=== PATIENT | female | born 1960 | race Caucasian/White ===

== ENCOUNTER 2023-07-04 09:39 | Emergency (ER) | payer MEDICARE, BC, SELFPAY ==
[2023-07-04 09:53] VITALS: BP 142/94; PULSE 102; RESP 102; TEMP 36.1; O2SAT 96; BMI 35.4
--- NOTE | 2023-07-04 10:13 | ED.GENADULT ---
HPI - General Adult General Time Seen by Provider: 10:13 Date Seen: 07/04/23 Chief complaint: Cough Stated complaint: pneumonia, trouble breathing Time Seen by Provider: 07/04/23 09:57 Source: patient Mode of arrival: ambulatory Limitations: no limitations History of Present Illness HPI narrative: Patient is a 63 white female who has got significant mental health history who was diagnosed with pneumonia a couple days ago with a CT scan unenhanced that showed ground-glass interstitial changes consistent with pneumonitis/pneumonia. She appropriately was started on an injection which sounds like a steroid, as well as cefuroxime and Zithromax which she is completing. She still has a cough she is coughing up a little bit of material, non hemoptysis. No leg swelling or edema no history of bleeding or clotting problems. They attempted to do a CT with IV contrast but had difficulty with IV starts. The patient was asked to come to the ED if she is not better. She is actually breathing okay, but having trouble sleeping at night with a cough. No leg swelling, no edema, no trauma. No history of blood clots as mention. Related Data Home Medications Medication Instructions Recorded Confirmed aspirin 81 mg tablet,delayed 81 mg PO DAILY 07/04/23 07/04/23 release azithromycin 250 mg tablet mg PO 07/04/23 cefuroxime axetil 500 mg tablet 500 mg PO BID 07/04/23 07/04/23 divalproex 500 mg tablet,extended 500 mg PO DAILY 07/04/23 07/04/23 release 24 hr lithium carbonate 300 mg tablet mg PO DAILY 07/04/23 Allergies Allergy/AdvReac Type Severity Reaction Status Date / Time acetaminophen Allergy Verified 07/04/23 10:03 adhesive tape Allergy Verified 07/04/23 10:03 amoxicillin Allergy Verified 07/04/23 10:03 codeine Allergy Verified 07/04/23 10:03 fentanyl Allergy Verified 07/04/23 10:03 hydrocodone Allergy Verified 07/04/23 10:03 ibuprofen Allergy Verified 07/04/23 10:03 lamotrigine Allergy Verified 07/04/23 10:03 mirtazapine Allergy Verified 07/04/23 10:03 nickel Allergy Verified 07/04/23 10:03 olanzapine Allergy Verified 07/04/23 10:03 oxycodone Allergy Verified 07/04/23 10:03 propoxyphene Allergy Verified 07/04/23 10:03 risperidone Allergy Verified 07/04/23 10:03 Sulfa (Sulfonamide Allergy Verified 07/04/23 10:03 Antibiotics) Review of Systems Status of ROS: Reports: 6 or more systems reviewed and unremarkable except as noted in History and below Exam Narrative: Exam Narrative: Objective: Vital signs are unremarkable she is afebrile, O2 sat 96% on room air Alert orient x3, noncyanotic, occasional coarse cough noted. Chest shows a basilar wheeze that cleared with deep breathing on the left, heart rhythm regular heart murmur Abdomen benign soft Extremities are no edema neurologic nonfocal, negative Homans sign lower extremities Good peripheral perfusion skin warm and dry. Const: Vital Signs, click to edit/add: Vital Signs - 24 hr 07/04/23 09:53 Temperature 97.0 F L Pulse Rate [Right Pulse Oximeter] 102 H Respiratory Rate 102 H Blood Pressure [Ri ght Upper Arm] 142/94 H Pulse Oximetry 96 Oxygen Delivery Me thod Room Air Course Vital Signs Vital signs: Initial Vital Signs Temperature 97.0 F L 07/04/23 09:53 Temperature Source Temporal Artery Scan 07/04/23 09:53 Pulse Rate 102 H 07/04/23 09:53 Respiratory Rate 102 H 07/04/23 09:53 Blood Pressure 142/94 H 07/04/23 09:53 Blood Pressure Mean 110 H 07/04/23 09:53 Blood Pressure Position Sitting 07/04/23 09:53 Pulse Oximetry 96 07/04/23 09:53 Oxygen Delivery Method Room Air 07/04/23 09:53 Vital Signs Temperature 97.0 F L 07/04/23 09:53 Pulse Rate 102 H 07/04/23 09:53 Respiratory Rate 102 H 07/04/23 09:53 Blood Pressure 142/94 H 07/04/23 09:53 Pulse Oximetry 96 07/04/23 09:53 Oxygen Delivery Method Room Air 07/04/23 09:53 Temperature 97.0 F L 07/04/23 09:53 Pulse Rate 102 H 07/04/23 09:53 Respiratory Rate 102 H 07/04/23 09:53 Blood Pressure 142/94 H 07/04/23 09:53 Pulse Oximetry 96 07/04/23 09:53 Oxygen Delivery Method Room Air 07/04/23 09:53 Medical Decision Making MDM Narrative Medical decision making narrative: 63-year-old female with history of atypical type pneumonia pneumonitis/pneumonia noted on CT scanning. At this point with her cough, her examination, and her reassuring history of no leg swelling, or clots. I think we are safe to not pursue further CT scanning as the risk would be low for PE. She does have an explanation for her cough with the ground-glass atypical appearance on her CT scan. At this point this certainly could be viral but I would recommend she finish her antibiotics, she did get a steroid injection it appears by her history. Would recommend observation fluids light activity and then recheck with primary care in the next 2-4 days not improving return to ED sooner problems concerns worsening she was comfortable this with shared decision making we elected not to pursue further CT scanning. Discharge Plan Discharge Clinical Impression: Pneumonia Patient Disposition: Home, Self-Care Condition: Stable Additional Instructions: Finish your antibiotic medicines, steamy shower couple times a day, fluids, Tylenol as needed, recheck with regular doctor in the next few days not improving changes concerns worsening return to ED. Activity Level: Light activity Discharge Diet: Diabetic Prescriptions: No Action azithromycin 250 mg tablet PO aspirin 81 mg tablet,delayed release (DR/EC) 81 mg PO DAILY divalproex 500 mg tablet extended release 24 hr 500 mg PO DAILY cefuroxime axetil 500 mg tablet 500 mg PO BID lithium carbonate 300 mg tablet PO DAILY Follow Up/Referrals: Lana Moore MD [Primary Care Provider] - Stand Alone Forms: [employer] Info Instructions
== END 2023-07-04 10:44 | disposition home or self-care (01) ==
LOC: ED 10:42
PROVIDERS: Emergency Provider Family Medicine; PCP Family Medicine
DX: J18.9 Pneumonia, unspecified organism (principal)
CPT/HCPCS: 99282; 99283; 99284

== ENCOUNTER 2023-08-19 12:11 | Emergency (ER) | payer MEDICARE, BC, SELFPAY ==
[2023-08-19 12:16] VITALS: BP 134/83; PULSE 82; RESP 18; TEMP 36.2; O2SAT 98; BMI 35.4
--- NOTE | 2023-08-19 12:50 | ED_ITS ---
HPI - General Adult General Chief complaint: Extremity Pain/Injury, Upper Stated complaint: Possible TIA last week, R arm spasms today Time Seen by Provider: 08/19/23 12:31 Source: patient Mode of arrival: ambulatory Limitations: no limitations History of Present Illness HPI narrative: 63-year-old female with a history of bipolar disorder, depression, multiple psychiatric hospitalizations, borderline personality disorder presenting today with an episode of concerned that occurred last night. Patient states that she was on her computer around 4:00 a.m. in the morning and her right arm that was holding the mouse jerked. This happened 2 times where the arm jerked forward 1 time each of the 2 times. Patient is concerned that she is having stroke or a TIA. She has been asymptomatic since 4:00 a.m. in the morning. She had an episode 6 days ago where she felt ?weird?. She felt foggy and confused for a brief period of time. She was evaluated and had an MRI with a head and neck MRA: I reviewed those results today and they were entirely normal. Patient also had a brain MRI back in 2021 which was unremarkable. And another one in 2019. She denies any focal neurologic deficits, changes in her speech, confusion, headache (she had a mild 1 earlier but it has resolved), blurry vision, ringing in her ears, difficulty walking. She does state that she had pneumonia recently and that her symptoms have completely resolved. She has no chest pain. Patient has chronic nausea on and off, today it is not worse. She has not been vomiting. Of note patient was living in [place] up until 8 years ago when she moved back to [place]. She has 9 siblings. Many of her siblings either had heart attacks or diagnosed with cancer this year so she feels like she is under a lot of stress. She had ECT therapy for 10 years from 03/07/2000 15. She feels like her mental health is currently the best that it has ever been, aside from her level of stress. Related Data Home Medications Medication Instructions Recorded Confirmed aspirin 81 mg tablet,delayed 81 mg PO DAILY 07/04/23 08/19/23 release divalproex 500 mg tablet,extended 500 mg PO DAILY 07/04/23 08/19/23 release 24 hr famotidine 20 mg tablet 20 mg PO BID 08/19/23 08/19/23 hydrocortisone 2.5 % topical cream topical BID 08/19/23 with perineal applicator rosuvastatin 40 mg tablet 40 mg PO DAILY 08/19/23 08/19/23 venlafaxine 37.5 mg 37.5 mg PO DAILY 08/19/23 08/19/23 capsule,extended release 24 hr Allergies Allergy/AdvReac Type Severity Reaction Status Date / Time adhesive tape Allergy Verified 08/19/23 12:24 amoxicillin Allergy Verified 08/19/23 12:24 codeine Allergy Verified 08/19/23 12:24 fentanyl Allergy Verified 08/19/23 12:24 hydrocodone Allergy Verified 08/19/23 12:24 ibuprofen Allergy Verified 08/19/23 12:24 lamotrigine Allergy Verified 08/19/23 12:24 mirtazapine Allergy Verified 08/19/23 12:24 nickel Allergy Verified 08/19/23 12:24 olanzapine Allergy Verified 08/19/23 12:24 oxycodone Allergy Verified 08/19/23 12:24 propoxyphene Allergy Verified 08/19/23 12:24 risperidone Allergy Verified 08/19/23 12:24 Sulfa (Sulfonamide Allergy Verified 08/19/23 12:24 Antibiotics) Review of Systems Status of ROS: Reports: 10 or more systems reviewed and unremarkable except as noted in History and below Exam Narrative: Exam Narrative: Well-nourished well-developed patient in no acute distress. Alert and oriented x3. Answers questions appropriately. Mood and affect are appropriate. Thoughts are goal oriented and rational. No tangential or magical thinking noted. Patient speaks in full sentences without needing to catch her breath. Speech is not slurred or pressured. HEENT: Normocephalic atraumatic. Pupils are equally round reactive to light. Extraocular muscles are intact. Conjunctivae are moist without any icterus noted. Moist mucous membranes. Cardiovascular: Heart is regular rate and rhythm S1 and S2 are present without any murmurs. Lungs: Clear to auscultation bilaterally no wheezes rhonchi or rales are appreciated. Patient takes deep breaths without any discomfort. Abdomen: Soft and nontender nondistended with normal bowel sounds. Extremities: Bilateral lower extremities are without edema. Normal DP and PT pulses. Skin: Well perfused without any obvious rashes. Strength is 5/5 of the upper and lower extremities. Reflexes are 2+ and symmetric at the knees. Romberg sign is negative. Cranial nerves 3-12 are norm al. [id number] is normal. [id number] is normal. There is no nystagmus either horizontally or vertically. Gait is normal. Const: Vital Signs, click to edit/add: Vital Signs - 24 hr 08/19/23 12:16 Temperature 97.1 F L Pulse Rate [Pulse Oximeter] 82 Respiratory Rate 18 Blood Pressure [Ri ght Upper Arm] 134/83 Pulse Oximetry 98 Oxygen Delivery Me thod Room Air Course Vital Signs Vital signs: Initial Vital Signs Temperature 97.1 F L 08/19/23 12:16 Temperature Source Temporal Artery Scan 08/19/23 12:16 Pulse Rate 82 08/19/23 12:16 Respiratory Rate 18 08/19/23 12:16 Blood Pressure 134/83 08/19/23 12:16 Blood Pressure Mean 100 08/19/23 12:16 Blood Pressure Position Sitting 08/19/23 12:16 Pulse Oximetry 98 08/19/23 12:16 Oxygen Delivery Method Room Air 08/19/23 12:16 Vital Signs Temperature 97.1 F L 08/19/23 12:16 Pulse Rate 82 08/19/23 12:16 Respiratory Rate 18 08/19/23 12:16 Blood Pressure 134/83 08/19/23 12:16 Pulse Oximetry 98 08/19/23 12:16 Oxygen Delivery Method Room Air 08/19/23 12:16 Temperature 97.1 F L 08/19/23 12:16 Pulse Rate 82 08/19/23 12:16 Respiratory Rate 18 08/19/23 12:16 Blood Pressure 134/83 08/19/23 12:16 Pulse Oximetry 98 08/19/23 12:16 Oxygen Delivery Method Room Air 08/19/23 12:16 Medical Decision Making MDM Narrative Medical decision making narrative: 63-year-old female with an episode of arm jerking last night that occurred 2 times. Patient has been completely asymptomatic. Patient had recent MRI imaging of the brain and neck, 6 days ago. I do not see the need for any further workup at this time. Patient already has an appointment scheduled with primary care as well as Neurology. Encouraged her to keep those appointments. Certainly return to the ER if symptoms return. Discharge Plan Discharge Clinical Impression: Abnormal movement Condition: Stable Additional Instructions: Follow-up with primary care and Neurology as scheduled. Stay well hydrated. Get plenty of rest. Make sure to speak to your therapist about your stress levels. Prescriptions: No Action aspirin 81 mg tablet,delayed release (DR/EC) 81 mg PO DAILY divalproex 500 mg tablet extended release 24 hr 500 mg PO DAILY venlafaxine 37.5 mg capsule,extended release 24hr 37.5 mg PO DAILY hydrocortisone 2.5 % cream with perineal applicator topical BID famotidine 20 mg tablet 20 mg PO BID rosuvastatin 40 mg tablet 40 mg PO DAILY Follow Up/Referrals: Lana Moore MD [Primary Care Provider] - Stand Alone Forms: [employer] Info Instructions
== END 2023-08-19 13:07 | disposition home or self-care (01) ==
PROVIDERS: Emergency Provider Family Medicine; PCP Family Medicine
DX: R25.8 Other abnormal involuntary movements (principal)
CPT/HCPCS: 99283; 99284

== ENCOUNTER 2023-10-26 09:42 | Outpatient (CLI) | payer MEDICARE, BC, SELFPAY ==
--- NOTE | 2023-10-26 11:07 | W.ANESCHARGE ---
Anesthesia Charges Start Date/Time Anesthesia Start Date: 10/26/23 Anesthesia Start Time: 10:55 Stop Date/Time Anesthesia Stop Date: 10/26/23 Anesthesia Stop Time: 11:20
--- NOTE | 2023-10-26 11:23 | W.ANESCHARGE ---
Anesthesia Charges Start Date/Time Anesthesia Start Date: 10/26/23 Anesthesia Start Time: 10:55 Stop Date/Time Anesthesia Stop Date: 10/26/23 Anesthesia Stop Time: 11:20
== END 2023-10-26 09:43 | disposition home or self-care (01) ==
LOC: OP CLINIC 09:42
PROVIDERS: PCP Family Medicine; Visit Provider Internal Medicine Gastroenterology
DX: K31.84 Gastroparesis (principal); K44.9 Diaphragmatic hernia without obstruction or gangrene; K31.89 Other diseases of stomach and duodenum; K21.9 Gastro-esophageal reflux disease without esophagitis; R11.15 Cyclical vomiting syndrome unrelated to migraine; R10.13 Epigastric pain
CPT/HCPCS: 00731; 43239; 88305; J2704

== ENCOUNTER 2024-07-20 10:24 | Outpatient (CLI) | payer MEDICARE, BC, SELFPAY ==
--- OUTSIDE RECORDS SUMMARY | 2024-07-21 08:37 | XMS_ITS | Encounter Summary ---
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 Social History Tobacco Use Types Packs/Day Years Used Date Smoking Tobacco: Former Cigarettes 1 3 0 04/26/1978 - 04/26/1981 Smokeless Tobacco: Never Comments:Quit 1981 Alcohol Use Standard Drinks/Week Comments No 0 (1 standard drink = 0.6 oz pur e alcohol) Sex and Gender Information Value Date Recorded Sex Assigned at Not on file Gender Identity Not on file Sexual Orientation Not on file documented as of this encounter Plan of Treatment Not on file documented as of this encounter Visit Diagnoses Not on filedocumented in this encounter Care Teams Employee Communications Specialist Relationship Specialty Start Date End Date Moraima Johns DO [address] [place] [address] PCP - General Family Practice 07/07/18 documented as of this encounter
--- OUTSIDE RECORDS SUMMARY | 2024-07-21 08:37 | XMS_ITS | Clinical Summary ---
Author Organization [facility] Address [address] [place] [address] Care Team Providers Care Cooperer Name Role Phone Moraima Johns DO Primary Care Provider [phone] Source Comments You are receiving this document as you are listed as the primary care provider,follow-up provider, or the patient has been referred to you for consultation.This is in compliance with the Medicare andMedicaid EHR Incentive Program,which states Providers who transition their patient to another setting of careor provider of care or refers their patient to another provider of care shouldprovide summary care record for each transition of care or referral. Spontaneously Allergies Active Allergy Reactions Criticality Noted Date Comments Amoxicillin Other, see comments 09/30/2017 Not true allergy, possible cross reaction with Venlafaxine, presented with confusion, lower extremity clonus, tachycardia, really didn't fit serotonin syndrome otherwise. Noted for future reference Codeine Hives High 11/26/2015 N/V also Fentanyl Unknown 01/24/2016 Ibuprofen Other, see comments 12/17/2017 Patient is taking lithium and is advised not to use IBU while taking lithium. Lamotrigine Hives High 11/26/2015 Mirtazapine Hives High 11/26/2015 Nickel Rash 12/01/2019 Olanzapine Hives High 11/26/2015 Acetaminophen Unknown 01/24/2016 Propoxyphene Unknown 01/24/2016 Risperidone Hives High 11/26/2015 Sulfa Antibiotics Unknown 11/21/2015 Hydrocodone Unknown 01/24/2016 Medications Medication Sig Dispensed Refills Start Date End Date Status Calcium Carbonate-Vitamin D (OYSTER SHELL CALCIUM 500 + D OR) Take 1 Tab by mouth daily at bedtime. Active Ferrous Sulfate (IRON) 325 (65 FE) MG 1 tab po q am Active aspirin 81 MG tablet Take 81 mg by mouth daily at bedtime. Active lancetsIndication s:Type 2 diabetes, diet controlled (HRC) Testing 1 times daily, ICD 10 E11.9, 90 day supply 102 Each 1 01/26/2017 Active Blood Glucose Monitoring Suppl (ACCU-CHEK MELISSA CONNECT) W/DEVICE KIT Use as directed 1 Kit 0 02/25/2017 Active acetaminophen (TYLENOL) 500 MG tablet Take 500 mg by mouth as needed for Pain. Maximum acetaminophen dose is 4000 mg in 24 hours Active escitalopram oxalate (LEXAPRO) 20 MG tabletIndications :Bipolar Affective DIsorder Take 1 Tab by mouth daily at bedtime. Indications: Bipolar Affective DIsorder 09/30/2017 Active [place] Carbonate 300 MG tabletIndications :Bipolar Affective DIsorder Take 1 Tab by mouth daily. Indications: Bipolar Affective DIsorder 09/30/2017 Active [place] Carbonate 300 MG tabletIndications :Bipolar Affective DIsorder Take 600 mg by mouth daily at bedtime. Indications: Bipolar Affective DIsorder 09/30/2017 Active propranolol (INDERAL) 10 MG tabletIndications :[place]-Induced Tremor Take 10 mg by mouth two times a day. Indications: [place]-Induced Tremor 09/30/2017 Active venlafaxine (EFFEXORXR) 150 MG 24 hour release capsuleIndication s:Bipolar Affective DIsorder Take 150 mg by mouth daily. Decrease from 225 mg to 150 mg by mouth daily. Indications: Bipolar Affective DIsorder 09/30/2017 Active sennosides-docusa te sodium (SENNA-S,SENNA PLUS) 8.6-50 MG per tablet Take 1 Tab by mouth daily. 100 Tab 3 10/28/2017 Active econazole nitrate (SPECTAZOLE) 1 % cream Apply to feet daily 30 g 1 12/17/2017 Active cloZAPine (CLOZARIL) 100 MG tablet Take 100 mg by mouth three times a day. Active atorvastatin (LIPITOR) 40 MG tablet TAKE 1 TABLET BY MOUTH DAILY TO LOWER CHOLESTEROL AND KEEP ARTERIES OPEN 90 Tablet 3 05/21/2018 Active blood glucose (ACCU-CHEK MELISSA PLUS) test stripIndications: Type 2 diabetes mellitus without complication, without long-term current use of insulin ([facility]) Use to test three times a day. Use as directed. Pharmacy dispense brand based on insurance. 300 Each 11 07/12/2018 Active oxybutynin (DITROPAN) 5 MG tabletIndications :OAB (overactive bladder) Take 1 Tablet by mouth two times a day. 180 Tablet 3 10/20/2018 Active Active Problems Problem Noted Date Diagnosed Date Confusion 07/12/2018 Screening for cervical cancer 02/22/2018 Overview (02/22/2018): 01/2018: NILM, HPV- Plan: Pap and HPV co-test in 3 years OAB (overactive bladder) 10/28/2017 Mixed incontinence 10/07/2017 Endometrial carcinoma 09/02/2017 SYLVAIN (obstructive sleep apnea) 07/01/2017 Type 2 diabetes mellitus without complication Positive FIT (fecal immunochemical test) 016 Migraine 01/24/2016 Thyroid nodule 01/24/2016 Iron deficiency anemia 01/24/2016 Major depression, recurrent 01/24/2016 Dysthymic disorder 01/24/2016 GERD (gastroesophageal reflux disease) 6 Myopia 01/24/2016 Astigmatism of eye 01/24/2016 Presbyopia 01/24/2016 Hyperlipidemia 11/21/2015 Bipolar affective disorder 11/21/2015 Resolved Problems Problem Noted Date Diagnosed Date Resolved Date Pneumonia of right middle lo be due to infectious organism 09/24/2017 03/29/2018 Diabetes Education 09/10/2016 7 Immunizations Name Administration Dates Next Due Influenza IIV4 (Quadrivalent) 0.5mL (46332) 06/19,08/06/2017,07/23/2016 Influenza, Unspecified Formulation 08/02/2015 PPSV23 (Pneumovax) 07/26/2015 Tdap 07/15/2012 Family History Medical History Relation Name Comments Coronary Artery Disease Father Heart Father Heart attack Alcohol/Drug Abuse Mother Anesthesia Reaction Mother Cancer, Ovary Mother Cancer, Uterine Mother Depression Mother Domestic Violence Mother Hyperlipidemia Mother Hypertension Mother Migraines Mother Obesity Mother Cancer, Breast Maternal Aunt 60's Coronary Artery Disease Maternal Grandmother Migraines Sister 2 Ladeea Relation Name Status Comments Father (Age 65) Heart ngozi ck Mother Alive Brother Alive 6 brothers A&W Daughter Alive Maternal Aunt Maternal Grandfather (Age 65) He art attack Maternal Grandmother (Age 70) He art attack Paternal Grandfather (Age 75) He art attack Paternal Grandmother (Age 80) He art attack Sister 1 Eloise Weeks Alive 3 sisters A&W Sister 2 Ladeea Alive Sister 3 Jannet Alive Sister 4 Pema Alive Sister 5 Lianne Alive Sister 6 Lola Alive Son (Age 29) MVA Social History Tobacco Use Types Packs/Day Years Used Date Smoking Tobacco: Former Cigarettes 1 3 0 04/26/1978 - 04/26/1981 Smokeless Tobacco: Never Comments:Quit 1981 Alcohol Use Standard Drinks/Week Comments No 0 (1 standard drink = 0.6 oz pur e alcohol) Sex and Gender Information Value Date Recorded Sex Assigned at Not on file Gender Identity Not on file Sexual Orientation Not on file Last Filed Vital Signs Vital Sign Reading Time Taken Comments Blood Pressure 126/77 04/24/2022 1:06 PM CDT Pulse 119 04/24/2022 1:06 PM CDT Temperature 38 ??C (100.4 ??F) 04/24/2022 1:06 PM CDT Respiratory Rate 20 04/24/2022 1:06 PM CDT Oxygen Saturation 97% 04/24/2022 1:06 PM CDT Inhaled Oxygen Concentration - - Weight 103 kg (227 lb) 04/23/2022 1:03 PM CDT Height 163 cm (5' 4.17) 08/11/2018 8:24 AM CDT Body Mass Index 38.75 08/11/2018 8:24 AM CDT Plan of Treatment Health Maintenance Due Date Last Done Comments Medicare Annual Wellness Visit 1960 Pneumococcal (2 - PCV) 07/26/2016 07/26/2015 Diabetes: Eye Exam 02/19/2018 02/19/2017 Diabetes: Foot Exam 12/17/2018 12/17/2017 Diabetes: Creatinine 07/01/2019 07/01/2018, 04/01/2018, 10/03/2017, Additional history exists Diabetes: Urine Microalbumin 07/01/2019 07/01/2018, 09/02/2017, 08/21/2016 Cervical Cancer Screening 02/05/2021 02/05/2018 Mammogram 05/23/2022 05/23/2021 (Comp leted), 09/03/2017, 02/21/2016, Additional history exists Diabetes: HGBA1C 07/04/2022 04/03/2022, , 05/10/2019, Additional history exists DTaP/Tdap/Td (2 - Tdap) 07/15/2022 07/15/2012 Diabetes: Lipid Panel 02/02/2023 02/02/2018 , 01/22/2017, 02/21/2016, Additional history exists COVID-19 Vaccine (3 season) 2024 02/05/2021, 01/11/2021 Influenza (#1) 2024 07/12/2021, 07/19, 06/18/2019, Additional history exists Colonoscopy 07/21/2026 07/21/2016, 06/19, 07/04/2016 (Completed) RSV (1 - 1-dose 75+ series) 01/26/2036 HIV Screening (Preventive Services) Completed 07/01/2018 Hep C Screening (Preventive Services) Completed 07/01/2018 Zoster/Shingles Completed 07/28/2019, 05/16/2019 HepA Aged Out No longer eligi ble based on patient's age to complete this topic HepB Aged Out No longer eligi ble based on patient's age to complete this topic Hib Aged Out No longer eligi ble based on patient's age to complete this topic IPV (Polio) Aged Out No longer eligi ble based on patient's age to complete this topic Infant RSV Aged Out No longer eligi ble based on patient's age to complete this topic MCV4 Aged Out No longer eligi ble based on patient's age to complete this topic Procedures Procedure Name Priority Date/Time Associated Diagnosis Comments HGB A1C Routine 07/01/2018 10:24 AM CDT Type 2 diabetes mellitus without complication, without long-term current use of insulin (HRC) HIV 1/2 AG/AB 4TH GEN Routine 07/01/2018 10:22 AM CDT Screening for HIV (human immunodeficiency virus) HEPATITIS C ANTIBODY, WITH REFLEX Routine 07/01/2018 10:21 AM CDT Need for hepatitis C screening test BASIC METABOLIC PANEL Routine 07/01/2018 10:21 AM CDT Type 2 diabetes mellitus without complication, without long-term current use of insulin (HRC) ALBUMIN/CREAT RATIO Routine 07/01/2018 1 0:20 AM CDT Type 2 diabetes mellitus without complication, without long-term current use of insulin (HRC) PAP TEST, ROUTINE Routine 02/05/2018 11: 16 AM CDT Encounter for Medicare annual wellness exam Vaginal Pap smear LIPID PANEL & DIRECT LDL (IF NEEDED) Routine 02/02/2018 8:42 AM CDT Hyperlipidemia, unspecified hyperlipidemia type MM MAMMOGRAM SCREENING BILAT W 3D ROCCO W CAD Routine 09/03/2017 3:21 PM [facility] NURSE STAFF Encounter for screening mammogram for malignant neoplasm of breast CORNELIUS (DIABETIC EYE EXAM) 02/19/2017 12:00 AM CDT COLONOSCOPY RESULT 07/21/2016 1: 13 PM CDT from Last 3 Months or Most Recently Relevant to Health Maintenance Results * (ABNORMAL) Hgb A1c (07/01/2018 10:24 AM CDT) Hgb A1c 6.0(H) 4.3 - 5.6 % [facility] Comment: See (NOTE) For patients not previously diagnosed with diabetes: 5.7-6.4%: Increased risk for diabetes (prediabetic) 6.5% and greater: Diagnostic for diabetes ?? For diabetic patients: <8.0%: Goal of therapy for ages 18-75 - physicians may recommend a higher or lower goal for specific individuals This Hemoglobin A1c assay has significant ?? interference with Hemoglobin (HbF) and ?? other Hemoglobin variants. In patients with known Hemoglobinopathies, or patients with results that do not correlate clinically, it is recommended that an alternate methodology for A1c testing be considered. Contact the laboratory for ordering information. 07/01/2018 10:2 4 AM CDT 07/01/2018 10:29 AM CDT Narrative [facility] - 07/01/2018 11:08 AM CDT Performed at [facility],[address] [place] [address],[place] [address], Dir Dr. Twan Araujo Moraima Johns DO LAB_1 Performing Organization Address [facility]/ZIP Co de Phone Number [facility] [address] [place] [address], [facility] [phone] * HIV 1/2 Ag/Ab 4th Generation (07/01/2018 10:22 AM CDT) Pathologist [facility] HIV 1/2 AG/AB 4thGEN Negative (Non Reactive) NEGNR [facility] Comment:HIV-1 p24 Ag and HIV -1/HIV-2 Ab not detected. 07/01/2018 10:2 2 AM CDT 07/01/2018 10:27 AM CDT Narrative [facility] - 07/02/2018 2:10 AM CDT Performed at [facility],[address] [place] [address],[place] [address], Dir Dr. Twan Araujo Moraima Johns DO LAB_1 Performing Organization Address [facility] Co de Phone Number [facility] [address] [place] [address], [facility] [phone] * Basic Metabolic Panel (07/01/2018 10:21 AM CDT) [facility] Sodium 140 136 - 145 mmol/L [facility] Potassium 4.2 3.5 - 5.1 mmol/L [facility] Chloride 107 98 - 109 mmol/L [facility] CO2 26 20 - 29 mmol/L [facility] Anion Gap (calc.) 7 7 - 16 mmol/L [facility] Glucose 115 70 - 180 mg/dl [facility] Calcium 10.4 8.4 - 10.4 mg/dl [facility] BUN 13 7 - 26 mg/dl [facility] Creatinine 0.81 0.55 - 1.02 mg/dl [facility] GFR, Estimated >60 >60 ml/min/1.[address] [place] [address] LAB GFR, Est., If Black >60 >60 ml/min/1.[address] [place] [address] LAB 07/01/2018 10:2 1 AM CDT 07/01/2018 10:26 AM CDT [facility] - 07/01/2018 11:41 AM CDT Performed at [facility],[address] [place] [address],[place] [address], Dir Dr. Twan Araujo Moraimaandrew Irizarryemma RODRIGUEZ LAB_1 Performing Organization Address City/[facility]/ZIP Co de Phone Number [facility] [address] [place] [address], [facility] [phone] * Hepatitis C Antibody, with Reflex (07/01/2018 10:21 AM CDT) Pathologist [facility] Anti-HCV Negative (Non Reactive) [facility] Comment: Antibodies to HCV not detected. Does not exclude the possibility of exposure to HCV. 07/01/2018 10:2 1 AM CDT 07/01/2018 10:26 AM CDT [facility] - 07/02/2018 1:10 PM CDT Performed at [facility], [address] [place] [address] ??[id number] Moraima Roberta Andreas RODRIGUEZ LAB_1 Performing Organization Address City/[facility]/ZIP Co de Phone Number [facility] [address] [place] [address], [facility] [phone] * Microalb/Creat Ratio (07/01/2018 10:20 AM CDT) Albumin, Urine, Random 4.6 mg/L [facility] Creatinine,Ur Random 85 mg/dl [facility] Alb/Creat Ratio, Urine, Random 5 <30 mg/g creatinine [facility] Urine specimen (specimen) 07/01/2018 10:20 AM CDT 07/01/2018 10:25 AM CDT [facility] - 07/01/2018 11:05 AM CDT Performed at [facility],[address] [place] [address],[place] [address], Dir Dr. Twan Araujo Moraima Johns DO LAB_1 Performing Organization Address [facility] [place] [address], [facility] [phone] * Pap Test, Routine (02/05/2018 11:16 AM CDT) Cytology, Pap (NOTE) Hand Spinner Cytology Report Patient Name: BOBBY GOMEZ Taken: 02/05/2018 Received: 02/05/2018 Reported: 02/16/2018 Physician(s): RUSTY HURD ?Source of Specimen Pap Test, Routine Cervical/Endocervi tolu: ?Specimen Adequacy ?Satisfactory for evaluation. ??Endocervical component absent. ? Final Cytologic Interpretation/Res ult NEGATIVE FOR INTRAEPITHELIAL LESION OR MALIGNANCY (NILM) ?? *Electronically Signed Out By DENNIS Harrell (ASCP)* DENNIS Harrell (ASCP) ? Pap Smear History Date of Last Menstrual Period: 02/07/2016 ?? Microscopic Description Microscopic examination is performed. [facility] Department of Pathology [address] [place] [address] ??[id number] [facility] 02/05/2018 11:1 6 AM CDT 02/05/2018 6:06 PM CDT Rusty Hurd MD LAB_1 Performing Organization Address [facility]/ZIP Co de Phone Number [address] [address], [facility] [phone] * (ABNORMAL) Lipid Panel and Direct LDL(If Needed) (02/02/2018 8:42 AM CDT) Hours Fasting 14 hours [facility] Cholesterol 238(H) 0 - 199 mg/dl [facility] Triglyceride 191(H) 0 - 149 mg/dl [facility] HDL 63 >40 mg/dl [facility] LDL, Calc. 137(H) 0 - 129 mg/dl [facility] Non HDL Chol, Calc 175(H) 0 - 159 mg/dl [facility] 02/02/2018 8:42 AM CDT 02/02/2018 8:43 AM CDT Narrative [facility] - 02/02/2018 11:44 AM CDT Performed at [facility], [address] ??[id number] Rusty Hurd MD LAB_1 [facility] [phone] * MM Mammogram Screening Bilat W Rocco W CAD (09/03/2017 3:21 PM [facility] NURSE STAFF) Anatomical Region Laterality Modality Breast Bilateral Mammography Impressions 09/04/2017 11:43 AM [facility] NURSE STAFF : ACR BI-RADS Category 1: Negative RECOMMENDATION: Follow Up Imaging in 12 months - Bilateral The results and recommendations of this examination will be communicated to the patient. Narrative 09/04/2017 11:43 AM [facility] NURSE STAFF MM MAMMOGRAM SCREENING BILAT W ROCCO W CAD performed on 09/03/17 Compared to: 02/21/2016 MAMMO SCREENING W/CAD&ROCCO BILAT, 12/20/2014 [facility] - BILATERAL MAMMOGRAM , and 04/12/2013 [facility] - BILATERAL MAMMOGRAM ?? FINDINGS: Bilateral screening mammogram was performed with the assistance of Computer-Aided Detection and breast tomosynthesis. The breasts are heterogeneously dense, which may obscure small masses. There is no radiographic evidence of malignancy. ?? Rusty Hurd MD RAD AMARA * CORNELIUS (DIABETIC EYE EXAM) (02/19/2017 12:00 AM CDT) 02/19/2017 Provider External DUMMY/OTHER/AR * COLONOSCOPY (07/21/2016 1:13 PM CDT) Narrative Transcriptions Arley Traylor MD - 07/04/2016 8:46 AM CDT [facility] [address] [address] BOBYB GOMEZ [facility]: [id number] DATE OF : 1960 AGE: 56 VISIT/ADMIT DATE: 07/04/2016 LOCATION: [facility] DATE OF PROCEDURE: 07/04/2016 SURGEON: ARLEY TRAYLOR MD PREOPERATIVE DIAGNOSIS: Positive fecal immunochemical test (FIT) test. POSTOPERATIVE DIAGNOSIS: Normal study. PROCEDURE PERFORMED: Colonoscopy. INDICATIONS: A 56-year-old woman who has never had a colonoscopy before,but a positive FIT test. MEDICAL HISTORY: Significant for hyperlipidemia, bipolar, depression,dysthymic, GERD, myopia. MEDICATIONS: Outpatient medications reviewed. INDICATIONS: I met with her in the preop area. I discussed with her therationale for colonoscopy, the alternatives, and the potentialcomplications including, but not limited to, perforation, bleeding,missed lesions, and incomplete study. We discussed the expected outcomeand recovery as well. I answered her questions. She stated sheunderstood the risks and wished to proceed. DESCRIPTION OF PROCEDURE: Patient underwent IV sedation administered byCRNA. With her on her left side, visual anal inspection and digitalrectal examination was unremarkable. Colonoscope with the little plasticamplifier attached to it was advanced into the cecum. The ileocecalvalve and appendiceal orifice were closely observed. Retrogradeexamination was carried out from the cecal pouch to the anus. Withdrawaltime was 12 minutes. The prep was excellent and the quality of the studywas excellent and was entirely normal. She tolerated this well with noapparent complications. Recommend repeat colonoscopy in 10 years. ARLEY TRAYLOR MD AEU/MODL /[id number] cc: RUSTY HURD MD COLONOSCOPY Arley Traylor MD HP DUMMY CODES EXTERNAL RESULTS from Last 3 Months or Most Recently Relevant to Health Maintenance Advance Directives * Full Code (Latest Code Status on File) Date Activated Date Inactivated Comments 09/29/2017 12:09 AM 09/30/2017 7:05 PM Care Teams Cooperer Relationship Specialty Start Date End Date Moraima Johns DO [address] [place] [address] PCP - General Family Practice 07/07/18
--- OUTSIDE RECORDS SUMMARY | 2024-07-21 08:37 | XMS_ITS | Encounter Summary ---
[facility] Address [address], [place] [address] Care Team Providers Care Local Company Intermodal Truck Driver Name Role Phone Moraima Johns DO Primary Care Provider [phone] Encounter Details Date Type Department Care Team (Late st Contact Info) Description 09/24/2018 Correspondence External to External, [place] [address] MICHAEL COGNITIVE ASSESSMENT (MOCA) Social History Tobacco Use Types Packs/Day Years [...] on filedocumented in this encounter Care Teams Local Company Intermodal Truck Driver Relationship Specialty Start Date End Date Moraima Johns DO [address] [place] [address] PCP - General Family Practice 07/07/18 documented as of this encounter
--- OUTSIDE RECORDS SUMMARY | 2024-07-21 08:38 | XMS_ITS | Encounter Summary ---
Author Organization [facility] Address [address], [place] [address] Care Team Providers Care Wireworker Supervisor Name Role Phone Moraima Johns DO Primary Care Provider [phone] Encounter Details Date Type Department Care Team (Late st Contact Info) Description 05/24/2018 Consent for Procedure/Treatme nt [facility] [address] [place] [address] [facility], Provider CONSENT FOR SLEEP STUDY Social History Tobacco Use Types Packs/Day Years [...] on filedocumented in this encounter Care Teams Wireworker Supervisor Relationship Specialty Start Date End Date Moraima Johns DO [address] [place] [address] PCP - General Family Practice 07/07/18 documented as of this encounter
--- OUTSIDE RECORDS SUMMARY | 2024-07-21 08:38 | XMS_ITS | Encounter Summary ---
Author Organization [facility] Address [address] [address] Care Team Providers Care Cap Blocker Name Role Phone Moraima Johns DO Primary Care Provider [phone] Encounter Details Date Type Department Care Team (Late st Contact Info) Description 07/04/2016 Consent for Procedure/Treatme [facility], Provider [facility] CONSENT FOR SURGERY OR PROCEDURE Social History Tobacco Use Types Packs/Day Years [...] on filedocumented in this encounter Care Teams Cap Blocker Relationship Specialty Start Date End Date Moraima Johns DO [address] [place] [address] PCP - General Family Practice 07/07/18 documented as of this encounter
--- OUTSIDE RECORDS SUMMARY | 2024-07-21 08:38 | XMS_ITS | Encounter Summary ---
[facility] Address [address] [address] Care Team Providers Care Costume Design Teacher Name Role Phone Moraima Johns DO Primary Care Provider [phone] Encounter Details Date Type Department Care Team (Late st Contact Info) Description 07/07/2018 Outside Hospital External to External, Provider No address [address] [facility] RECOR[facility] Social History Tobacco Use Types Packs/Day Years [...] on filedocumented in this encounter Care Teams Costume Design Teacher Relationship Specialty Start Date End Date Moraima Johns DO [address] [place] [address] PCP - General Family Practice 07/07/18 documented as of this encounter
--- OUTSIDE RECORDS SUMMARY | 2024-07-21 08:38 | XMS_ITS | Encounter Summary ---
[facility] Address [address], [place] [address] Care Team Providers Care Sales Promotion Manager Name Role Phone Moraima Johns DO Primary Care Provider [phone] Encounter Details Date Type Department Care Team (Late st Contact Info) Description 01/20/2017 Consent for Procedure/Treatme [facility], Provider CONSENT FOR SLEEP STUDY Social History [...] on filedocumented in this encounter Care Teams Sales Promotion Manager Relationship Specialty Start Date End Date Moraima Johns DO [address] [place] [address] PCP - General Family Practice 07/07/18 documented as of this encounter
--- OUTSIDE RECORDS SUMMARY | 2024-07-21 08:38 | XMS_ITS | Encounter Summary ---
Author Organization [facility] Address [address], [place] [address] Care Team Providers Care Slot Key Person Name Role Phone Moraima Johns DO Primary Care Provider [phone] Encounter Details Date Type Department Care Team (Late st Contact Info) Description 02/25/2017 Correspondence None Inactive, Provider DME PATIENT INSTRUCTION/PLAN OF CARE Social History Tobacco Use Types Packs/Day Years [...] on filedocumented in this encounter Care Teams Slot Key Person Relationship Specialty Start Date End Date Moraima Johns DO [address] [place] [address] PCP - General Family Practice 07/07/18 documented as of this encounter
--- OUTSIDE RECORDS SUMMARY | 2024-07-21 08:38 | XMS_ITS | Encounter Summary ---
Author Organization [facility] Address [address], [place] [address] Care Team Providers Care Lawn Sprinkler Installer Name Role Phone Moraima Johns DO Primary Care Provider [phone] Encounter Details Date Type Department Care Team (Late st Contact Info) Description 02/25/2017 Correspondence None Inactive, Provider PAP EQUIPMENT PICK-UP TICKET Social History Tobacco Use Types Packs/Day Years [...] on filedocumented in this encounter Care Teams Lawn Sprinkler Installer Relationship Specialty Start Date End Date Moraima Johns DO [address] [place] [address] PCP - General Family Practice 07/07/18 documented as of this encounter
--- OUTSIDE RECORDS SUMMARY | 2024-07-21 08:38 | XMS_ITS | Encounter Summary ---
Author Organization [facility] Address [address] [address] Care Team Providers Care Advanced Practice Nurse Name Role Phone Moraima Johns DO Primary Care Provider [phone] Encounter Details Date Type Department Care Team (Late st Contact Info) Description 04/08/2017 Correspondence None No Primary/Referring, Phy HME EQUIPMENT WAREHOUSE REPRESENTATIVE TICKET CPAP Social History Tobacco Use Types Packs/Day Years [...] on filedocumented in this encounter Care Teams Advanced Practice Nurse Relationship Specialty Start Date End Date Moraima Johns DO [address] [place] [address] PCP - General Family Practice 07/07/18 documented as of this encounter
--- OUTSIDE RECORDS SUMMARY | 2024-07-21 08:38 | XMS_ITS | Encounter Summary ---
Author Organization [facility] Address [address] [address] Care Team Providers Care Education Rn Name Role Phone Moraima Johns DO Primary Care Provider [phone] Encounter Details Date Type Department Care Team (Late st Contact Info) Description 02/25/2017 Correspondence None Inactive, Provider INSTRUCTION CHECKLIST Social History Tobacco Use Types Packs/Day Years [...] on filedocumented in this encounter Care Teams Education Rn Relationship Specialty Start Date End Date Moraima Johns DO [address] [place] [address] PCP - General Family Practice 07/07/18 documented as of this encounter
--- OUTSIDE RECORDS SUMMARY | 2024-07-21 08:38 | XMS_ITS | Encounter Summary ---
Author Organization [facility] Address [address] [address] Care Team Providers Care Geophysical Data Technician Name Role Phone Moraima Johns DO Primary Care Provider [phone]- [phone] Encounter Details Date Type Department Care Team (Late st Contact Info) Description 07/24/2017 Correspondence None No Primary/Referring, Phy HME EQUIPMENT TRANSCRIPTION COORDINATOR TICKET CPAP Social History Tobacco Use Types [...] on filedocumented in this encounter Care Teams Geophysical Data Technician Relationship Specialty Start Date End Date Moraima Johns DO [address] [place] [address] PCP - General Family Practice 07/07/18 documented as of this encounter
--- OUTSIDE RECORDS SUMMARY | 2024-07-21 08:38 | XMS_ITS | Encounter Summary ---
[facility] Address [address] [address] Care Team Providers Care Associate Merchandiser Name Role Phone Moraima Johns DO Primary Care Provider [phone] Encounter Details Date Type Department Care Team (Late st Contact Info) Description 05/13/2016 Outside Hospital External to External, Provider No address [address] ONCOLOGY PROGRESS NOTE Social History Tobacco Use Types Packs/Day Years [...] on filedocumented in this encounter Care Teams Associate Merchandiser Relationship Specialty Start Date End Date Moraima Johns DO [address] [place] [address] PCP - General Family Practice 07/07/18 documented as of this encounter
--- OUTSIDE RECORDS SUMMARY | 2024-07-21 08:38 | XMS_ITS | Encounter Summary ---
Author Organization [facility] Address [address], [place] [address] Care Team Providers Care Semiconductor Processing Technician Name Role Phone Moraima Johns DO Primary Care Provider [phone] Encounter Details Date Type Department Care Team (Late st Contact Info) Description 04/07/2018 Consent for Procedure/Treatme [facility], Provider CONSENT FOR SURGERY OR INVASIVE PROCEDURE Social History Tobacco Use Types Packs/Day [...] on filedocumented in this encounter Care Teams Semiconductor Processing Technician Relationship Specialty Start Date End Date Moraima Johns DO [address] [place] [address] PCP - General Family Practice 07/07/18 documented as of this encounter
--- OUTSIDE RECORDS SUMMARY | 2024-07-21 08:38 | XMS_ITS | Encounter Summary ---
Author Organization [facility] Address [address], [place] [address] Care Team Providers Care Manager Internet Name Role Phone Moraima Johns DO Primary Care Provider [phone]- [phone] Encounter Details Date Type Department Care Team (Late st Contact Info) Description 05/21/2017 Scanned History [facility] [address] [place] [id number] [facility], Provider LV MRI SAFETY AND HEALTH QUESTIONNAIRE Social History Tobacco Use Types Packs/Day Years [...] on filedocumented in this encounter Care Teams Manager Internet Relationship Specialty Start Date End Date Moraima Johns DO [address] [place] [address] PCP - General Family Practice 07/07/18 documented as of this encounter
--- OUTSIDE RECORDS SUMMARY | 2024-07-21 08:38 | XMS_ITS | Encounter Summary ---
Author Organization [facility] Address [address] [address] Care Team Providers Care Digital Campaign Manager Name Role Phone Moraima Johns DO Primary Care Provider [phone] Encounter Details Date Type Department Care Team (Late st Contact Info) Description 04/02/2016 Outside Hospital External to External, Provider No address [place], [place] [id number] [place] [address] ONCOLOGY CONSULT Social History Tobacco Use Types Packs/Day Years [...] on filedocumented in this encounter Care Teams Digital Campaign Manager Relationship Specialty Start Date End Date Moraima Johns DO [address] [place] [address] PCP - General Family Practice 07/07/18 documented as of this encounter
--- OUTSIDE RECORDS SUMMARY | 2024-07-21 08:38 | XMS_ITS | Encounter Summary ---
Author Organization [facility] Address [address] [address] Care Team Providers Care Vise Hand Name Role Phone Moraima Johns DO Primary Care Provider [phone]- [phone] Encounter Details Date Type Department Care Team (Late st Contact Info) Description 04/06/2018 Consent for Procedure/Treatme [facility] CARDIOLOGY NON-INVASIVE [address] [place] [address] [facility], Provider CONSENT FOR CARDIAC STRESS TEST Social History Tobacco Use Types Packs/Day Years [...] on filedocumented in this encounter Care Teams Vise Hand Relationship Specialty Start Date End Date Moraima Jhons DO [address] [place] [address] PCP - General Family Practice 07/07/18 documented as of this encounter
--- OUTSIDE RECORDS SUMMARY | 2024-07-21 08:38 | XMS_ITS | Encounter Summary ---
Author Organization [facility] Address [address] [address] Care Team Providers Care Network Mgr Name Role Phone Moraima Johns DO Primary Care Provider [phone]- [phone] Encounter Details Date Type Department Care Team (Late st Contact Info) Description 07/04/2016 Consent for Procedure/Treatme [facility], Provider [facility] CONSENT FOR SURGERY OR PROCEDURE Social History [...] on filedocumented in this encounter Care Teams Network Mgr Relationship Specialty Start Date End Date Moraima Johns DO [address] [place] [address] PCP - General Family Practice 07/07/18 documented as of this encounter
--- OUTSIDE RECORDS SUMMARY | 2024-07-21 08:38 | XMS_ITS | Encounter Summary ---
Author [facility] Address [address] [address] Care Team Providers Care Sample Dye Mixer Name Role Phone Moraima Johns DO Primary Care Provider [phone]- [phone] Encounter Details Date Type Department Care Team (Late st Contact Info) Description 07/04/2016 Consent for Procedure/Treatme [facility] ANESTHESIA [address] [place], [place] [id number] Shayne Young, AQUATIC LIFE LABORER, AGRICULTURAL EQUIPMENT SALESPERSON CONSENT FOR ANESTHESIA Social History Tobacco Use Types Packs/Day Years [...] on filedocumented in this encounter Care Teams Sample Dye Mixer Relationship Specialty Start Date End Date Moraima Johns DO [address] [place] [address] PCP - General Family Practice 07/07/18 documented as of this encounter
--- OUTSIDE RECORDS SUMMARY | 2024-07-21 08:38 | XMS_ITS | Encounter Summary ---
[facility] Address [address], [place] [address] Care Team Providers Care Ticket Chopper Assembler Name Role Phone Moraima Johns DO Primary Care Provider [phone] Encounter Details Date Type Department Care Team (Late st Contact Info) Description 02/18/2017 Consent for Procedure/[place] [address] [facility] CONSENT FOR MEDICAL OR SURGICAL TRETMENT Social History Tobacco Use Types Packs/Day Years [...] on filedocumented in this encounter Care Teams Ticket Chopper Assembler Relationship Specialty Start Date End Date Moraima Johns DO [address] [place] [address] PCP - General Family Practice 07/07/18 documented as of this encounter
--- OUTSIDE RECORDS SUMMARY | 2024-07-21 08:39 | XMS_ITS | Clinical Summary ---
Author Organization [employer] [facility] Address [place], [place] [address] Care Team Providers Care Planograph Operator Name Role Phone Trish Vance MD Unavailable [phone] Mookie Guzman PsyD, WOODY Unavailable Ginna Cooney RN Unavailable [phone] Manohar Sanon MD Unavailable Raghu Martinez MD Unavailable [phone] Leesa Jaeger DO Primary Care Provider [phone] Usama Todd MD Unavailable Allergies Active Allergy Reactions Criticality Noted Date Comments Adhesive Tape-Silicones Rash 05/02/2021 Got blisters from zio patch Codeine *Unknown 04/08/2016 Fentanyl *Unknown Medium 04/11/2016 Latex Rash 04/29/2024 Mirtazapine Hives Medium 04/11/2016 Notable when taken in combination with ambien Nickel Rash 12/01/2019 Olanzapine Hives Medium 04/11/2016 Oxycodone-Acetaminophen *Unknown Unknown 04/11/2016 Propoxyphene *Unknown Unknown 04/11/2016 Risperidone Hives Medium 04/11/2016 Dizziness and confusion Sulfa (Sulfonamide Antibiotics) *Unknown 04/08/2016 Unlisted Allergen (Include Detail In Comments) *Unknown 07/04/2023 Hydrocodone-Guaifenesin *Unknown Unknown 04/11/2016 Medications Medication Sig Dispensed Refills Start Date End Date Status blood-glucose meterIndications:New onset type 2 diabetes mellitus (HC) Dispense meter, test strips, lancets covered by pt ins. E11.9 NIDDM type II - Test 2 times/day. Reason: New diabetes 1 Device 05/02/2021 Active aspirin (ECOTRIN) 81 mg enteric coated tabletIndications:myoc ardial infarction prevention Take 1 Tablet (81 mg) by mouth once daily with a meal. 90 Tablet 3 02/17/2023 Active cholecalciferol (VITAMIN D3) 2,000 unit capsuleIndications:Vit hagen D deficiency Take 1 Capsule (2,000 units) by mouth once daily. 0 03/13/2023 Active Menthol-Herbal Drugs (Ricola) lozgIndications:Cough, unspecified type Dissolve 1 Lozenge in the mouth each time if needed (Cough). 0 03/13/2023 Active nystatin (MYCOSTATIN) creamIndications:Patricia yahaira intertrigo Apply topically to affected area(s) two times daily. 60 g 5 03/30/2023 Active blood sugar diagnostic (Contour Next Test Strips) stripIndications:New onset type 2 diabetes mellitus (HC) use to test blood glucose levels twice daily. 200 Each 3 08/23/2023 Active fluticasone (50 mcg per actuation) nasal solution (FLONASE)Indications:P ost-nasal drainage Inhale 2 Sprays to both nostrils once daily. 16 g 1 12/16/2023 Active omeprazole 20 mg tabletIndications:Terri roesophageal reflux disease, unspecified whether esophagitis present Take 1 Tablet (20 mg) by mouth once daily. Take before first meal of the day. 90 Tablet 2 03/03/2024 Active nystatin 100,000 unit/gram creamIndications:Patricia yahaira intertrigo Apply topically to affected area(s) 2 times daily if needed (topical yeast). 30 g 05/12/2024 Active rosuvastatin (CRESTOR) 40 mg tabletIndications:Hype rlipidemia, unspecified hyperlipidemia type TAKE 1 TABLET(40 MG) BY MOUTH AT BEDTIME 90 Tablet 2 05/30/2024 Active solifenacin (VESICARE) 10 mg tabletIndications:Mixe d incontinence Take 1 Tablet (10 mg) by mouth once daily. 90 Tablet 3 05/30/2024 Active divalproex (DEPAKOTE ER) 500 mg Extended-Release tabletIndications:Mild episode of recurrent major depressive disorder (HC) Take 1 Tablet (500 mg) by mouth at bedtime. 05/31/2024 Active venlafaxine (EFFEXOR XR) 75 mg cp24 Extended-Release capsuleIndications:Mil d episode of recurrent major depressive disorder (HC) Take 2 Capsules (150 mg) by mouth once daily with a meal. 05/31/2024 Active fexofenadine (HILDA) 180 mg tabletIndications:Mult iple allergies Take 180 mg by mouth once daily. Do not crush or chew. 30 Tablet 1 06/29/2024 Active Active Problems Problem Noted Date Diagnosed Date Paroxysmal SVT (supraventricular tachycardia) History of endometrial cancer 12/17/2023 Type 2 diabetes mellitus wit h diabetic autonomic neuropathy, without long-term current use of insulin 12/08/2023 Mixed incontinence 11/30/2023 Renal angiomyolipoma 11/29/2023 Gastroparesis 11/18/2023 OAB (overactive bladder) 09/22/2023 Renal cyst 09/22/2023 Nonepileptic episode 12/25/2022 Bloating 12/25/2022 Hyperparathyroidism 09/18/2022 Candidal intertrigo 06/06/2022 Moderate episode of recurrent major depressive d isorder 05/23/2022 Borderline personality disorder 05/23/2022 Suicidal ideation 05/23/2022 Adenomatous colon polyp 04/02/2021 Overview (04/02/2021): Colonoscopy 03/2021 polyp, repeat in 7 years with propofol Nickel allergy 12/15/2019 Abdominal bloating 12/15/2019 PTSD (post-traumatic stress disorder) 11/29/2019 GERD (gastroesophageal reflux disease) 6 Iron deficiency anemia 01/24/2016 Migraine 01/24/2016 Thyroid nodule 01/24/2016 Overview (05/01/2022): On ultrasound 03/21/2019. Follow up recommended at 1, 2, 3, 5 years. Hyperlipidemia 11/21/2015 Syncope Sleep disturbance Resolved Problems Problem Noted Date Diagnosed Date Resolved Date Body mass index (BMI) 40.0-44.9, adult 02/17/2023 05/27/2023 Essential (hemorrhagic) thrombocythemia 12/25/2022 10/23/2023 Endometrial cancer, grade I 12/25/2022 12/17/2023 Suicidal ideation 10/24/2020 03/28/2021 Hepatic steatosis 12/15/2019 05/30/2024 History of malignant neoplas m of fallopian tube in adulthood 12/15/2019 03/28/2021 BMI 38.0-38.9,adult 12/15/2019 12/12/19 22 Bipolar 2 disorder 04/05/2019 Systemic inflammatory respon se syndrome (SIRS) 12/07/2018 12/15/2023 Drug toxicity 11/26/2018 03/28/2021 Toxic encephalopathy 11/17/2018 024 Malignant neoplasm of endometrium 09/02/2017 12/17/2023 Overview (05/01/2022): 04/11/2016 ) UTERUS, CERVIX, OVARIES AND FALLOPIAN TUBES, ROBOTIC ASSISTED TOTAL LAPAROSCOPIC HYSTERECTOMY WITH BILATERAL SALPINGO-OOPHORECTECTOMY: 1. Endometrioid carcinoma of the endometrium: a. Histologic grade: FIGO Grade 1 10/24/2020 NIL 11/13/2020 Vaginal biopsy: Benign atrophic squamous mucosa with focal mild non-specific chronic inflammation and submucosal hemorrhage Pap Plan 11/02/2020: DIRECTOR OF OPTIMIZATION/ONC referral Obstructive sleep apnea syndrome 07/01/2017 03/03/2024 Type 2 diabetes mellitus without complication 10/09/20 16 12/15/2023 Acute metabolic encephalopathy 03/28/2021 Agitation 03/28/2021 Serotonin syndrome 1 Sepsis 03/28/2021 Hypernatremia 03/28/2021 Cancer 03/28/2021 Overview (12/07/2020): endometrial cancer Plan: DIRECTOR OF OPTIMIZATION/ONC referral 11/02/2020 Encounters Date Type Department Care Team Description 07/12/2024 7:30 AM CDT Nurse/Clinic Staff Only [facility] [address] [place] [address] Testing (HST Return/Download) 07/12/2024 Travel 07/11/2024 1:45 PM CDT Nurse/Clinic Staff Only [facility] [address] [facility] [place] [address] Testing (HSt Setup) 07/11/2024 Procedure Only [facility] [address] [place] [address] Homer Carmona MD Results (HST) 07/10/2024 Travel 07/07/2024 8:00 AM CDT Office Visit [address] [phone] Mookie Guzman PsyD, LP Individual Therapy 07/06/2024 Travel 06/29/2024 10:25 AM CDT Office Visit [address] [address] Leesa Jaeger DO Follow Up (Had outside allergy testing, brought in documents); Hip Pain/problem (Right hip pain, may be from plane ride. hurts to put pressure on it, 1 day); Immunization/Injection 06/29/2024 Travel 06/24/2024 Travel 06/01/2024 Nurse Triage [address] [address] Leesa Jaeger DO Arm Pain/problem (Pain in arm after lab draw) 05/31/2024 8:15 AM CDT Office Visit [address] [phone] Mookie Guzman PsyD, LP Individual Therapy 05/31/2024 7:30 AM CDT Office Visit [address] [address] Mary Christianson NP Follow Up; Medication Management (feeling, good) 05/30/2024 4:05 PM CDT Office Visit [address] [address] Leesa Jaeger DO Musculoskeletal Problem; Hip Pain/problem (ongoing for 3-4 days. thinks it could be related to sleeping on the couch while dog sitting. ) 05/30/2024 8:00 AM CDT Office Visit [address] [place] [address] Usama Todd MD Follow Up (Renal angiomyolipoma) 05/30/2024 Travel 05/28/2024 Travel 05/27/2024 Refill [facility] [address] [place] [address] Lana Moore MD Refill Request (Rosuvastatin) 05/27/[address] [phone] Maite Alaniz NP Refill Request (Solifenacin Succinate) 05/24/2024 7:25 AM CDT Telemedicine [address] [address] Merle Langford NP Sleep Follow-up (Med check); Telehealth (Virtual visit, no vitals taken.) 05/23/2024 8:00 AM CDT Ancillary Procedure [address] [address] 05/23/2024 7:45 AM CDT Orders Only [address] [address] Lab[facility] 05/22/2024 Travel 05/18/2024 Travel 05/12/2024 7:30 AM CDT Office Visit [address] [address] Leesa Jaeger, Allergic Reaction (04/29. Used latex gloves, got rash right away. Had sores on tongue. ) 05/12/2024 Travel 04/28/2024 8:45 AM CDT Office Visit [address] [phone] Mookie Guzman PsyD, LP Individual Therapy; Trmt Plan 04/27/2024 7:55 AM CDT Office Visit [address] [address] Leesa Jaeegr, DO Abdominal Pain (Lower abdominal pain continuing. Feels she is having regular bowel movements again. ) 04/27/2024 Travel 04/26/2024 9:00 AM CDT Office Visit [facility] [place] [facility] [address] [facility] [address] Manohar Sanon MD Follow Up (Follow up seizures. Patient no longer taking Lamictal, had a balance type reaction. Patient also wants to discuss GI issues that she thinks are being caused by neurology issues. ) 04/25/2024 Travel 04/22/2024 Travel from Last 3 Months Immunizations Name Administration Dates Next Due COVID-19 VACCINE SPIKEVAX (M ODERNA 50MCG/0.5ML) 12YO+ PFS 08/13/2023 COVID-19 vaccine (Pfizer-Bio NTech 30mcg/0.3mL) 12YO+ BIVALENT PF, MDV 09/03/2022 COVID-19 vaccine (Pfizer-Bio NTech 30mcg/0.3mL) 12YO+ STEPHAN-SUCROSE PF, MDV 01/29/2022 COVID-19 vaccine (Pfizer-Bio NTech 30mcg/0.3mL) PF, MDV 09/16/2021,02/05/2021,01/11/2021 INFLUENZA, IIV3 PF (AGE >= 6 MO) 06/29/2024 Influenza Virus, Unspecified 08/02/2015, 08/02/2015,07/26/2015,2014,07/15/2012 Influenza, IIV4 07/07/2023,,07/12/2021,2019,06/18/2019,07/01/2018,08/06/2017,1 Influenza, split (incl. shaun fied surface antigen) 08/11/2008 Pneumococcal Conj 20-valent (Prevnar 20) 06/12/2022 Pneumococcal Poly,23-Valent (Pneumovax) 07/26/2015 Tdap 09/15/2022,07/15/2012 Zoster (Shingrix-RZV, recombinant) 07/28/2019, Family History Medical History Relation Name Comments Heart attack Brother 1 Hyperlipidemia Brother 1 Heart attack Brother 2 Heart attack Father multiple Cancer-ovarian Mother Depression Mother Diabetes Mother Hyperlipidemia Mother Obesity Mother Thyroid cancer Mother Hyperlipidemia Sister 1 Obesity Sister 1 ALS Sister 2 Cancer-breast No Family History Relation Name Status Comments Brother 1 Alive Brother 2 Alive Father Mother Sister 1 Sister 2 Social History Tobacco Use Types Packs/Day Years Used Date Smoking Tobacco: Former Cigarettes 0.5 2 0 12/12/1979 - 12/12/1981 Smokeless Tobacco: Never Tobacco Cessation:Counseling Given: Yes Comments:Social smoker x 2 yrs. no longer social smoker Alcohol Use Standard Drinks/Week Comments Never 0 (1 standard drink = 0.6 oz pur e alcohol) PHQ-2 Answer Date Recorded PHQ-2 TOTAL SCORE 1 07/06/2024 Social Connections Answer Date Recorded Frequency of Communication with Friends and Fami ly 4 02/27/2024 Financial Resource Strain Answer Date R ecorded Difficulty of Paying Living Expenses 3 02/27/2024 Difficulty of Paying Living Expenses Not on file 02/27/2024 Food Insecurity Answer Date Recorded Worried About Running Out of Food in the Last Ye ar 1 02/27/2024 Transportation Needs Answer Date Record ed Lack of Transportation (Medical) 1 02/27/2024 Housing Stability Answer Date Recorded Unable to Pay for Housing in the Last Year 1 02/27/2024 Sex and Gender Information Value Date Recorded Sex Assigned at Female 06/19/2023 5:46 PM CDT Gender Identity Female 06/19/2023 5:46 PM CDT Sexual Orientation Straight 08/02/2021 10 :18 AM CDT Travel History Travel Start Travel End [place] 06/01/2024 06/28/2024 Obstetrics History Para Term AB IAB SAB Ectopic Multiple Livin g Live Births 2 2 1 2 Date Outcome GA Total Labor Labor/2nd/3rd Weight Sex Type Anes PTL Zuri A1 A5 Name Clin Para Para Last Filed Vital Signs Vital Sign Reading Time Taken Comments Blood Pressure 127/80 06/29/2024 10:27 AM CDT Pulse 92 06/29/2024 10:27 AM CDT Temperature 36.8 ??C (98.3 ??F) 10/28/2023 1 1:37 AM AIRPLANE PILOT Respiratory Rate 18 10/28/2023 11:3 7 AM AIRPLANE PILOT Oxygen Saturation 96% 04/26/2024 8:49 AM CDT Inhaled Oxygen Concentration - - Weight 97.4 kg (214 lb 12.8 oz) 024 10:27 AM CDT Height 160 cm (5' 3) 03/03/2024 7:30 AM CDT Body Mass Index 38.05 03/03/2024 7:30 AM CDT Plan of Treatment Upcoming Encounters Date Type Department Care Team (Late st Contact Info) Description 07/28/2024 9:45 AM CDT Office Visit [facility] [address] [place] [phone] Mookie Guzman PsyD, WOODY [address] [place] [address] 08/04/2024 7:30 AM CDT Office Visit [address] [phone] Mary Christianson NP [address] [place] [address] 08/08/2024 7:00 AM CDT Ancillary Procedure [facility] [address] [place] [address] 08/10/2024 9:45 AM CDT Office Visit [facility] [address] [place] [phone] Mookie Guzman PsyD, WOODY [address] [place] [address] 08/22/2024 7:40 AM AIRPLANE PILOT Office Visit [facility] [address] [place] [address] Mando Oleary MD [address] [place] [address] 08/22/2024 11:00 AM AIRPLANE PILOT Appointment [address] [address] [address] [place] [address] 08/23/2024 7:50 AM AIRPLANE PILOT Telemedicine [facility] [address] [place] [address] Merle Langford NP [address] [place] [address] 08/24/2024 9:30 AM [address] Telemedicine [facility] [address] [facility] [address] [place] [address] Raghu Martinez MD [address] [facility] [address] [place] [address] 11/23/2024 9:00 AM AIRPLANE PILOT Office Visit [facility] [place] [facility] [address] [place] [address] Manohar Sanon MD [address] [place] [address] 11/24/2024 12:45 PM AIRPLANE PILOT Office Visit [facility] [address] [place] [phone] Zachary Andre MD [address] [facility] [address] [place] [phone] Health Maintenance Due Date Last Done Comments COVID-19 vaccine series (2023- season) 2024 08/13/2023, 09/03/2022, 01/29/2022, Additional history exists Mammogram for age 45-75 07/16/2024 07/16/20 23, 06/02/2022, 05/23/2021, Additional history exists BMI (ht and wt on same day) for age 18+ 03/03/2025 03/03/2024, 12/14/2023, 11/30/2023, Additional history exists Depression screening for age 12+ 07/07/2025 07/07/2024, 07/06/2024, 06/01/2024, Additional history exists Colonoscopy through age 75 04/01/202804/01, 04/01/2021, 07/04/2016 [facility] Lipids for age 45-75 02/22/2029 02/23/2024, 03/10/2023, 09/05/2021, Additional history exists Tetanus booster 09/15/2032 09/15/2022, 07/15/2012 Hepatitis C screening for ag e 18-79 Completed 05/10/2019 Zoster (shingles) series for age 50+ Completed 07/28/2019, 05/16/2019 Pap test for age 21-65 Discontinued 10/24/2020 Pneumococcal series for age 6-64 Completed 06/12/20 22, 07/26/2015 Tdap Completed 09/15/2022, 07/15/2012 HIV for age 15-65 Completed 12/22/2022 Influenza for age 50-64 Completed 06/29/20 24, 07/07/2023, 06/24/2022, Additional history exists Procedures Procedure Name Priority Date/Time Associated Diagnosis Comments HOME SLEEP TEST TYPE 3 PORTABLE Routine 07/11/2024 11:59 PM CDT Snoring History of sleep apnea Palpitations Non-restorative sleep CBC WITH AUTO DIFFERENTIAL Routine 05/31/2024 9:35 AM CDT [facility]DC use of drug HEPATIC FUNCTION PANEL Routine 05/31/2024 9:35 AM CDT [facility] use of drug CBC WITH AUTO DIFFERENTIAL Routine 05/31/2024 9:35 AM CDT [facility] use of drug VALPROIC ACID TOTAL Routine 05/31/2024 9 :35 AM CDT [facility] use of drug CT ABDOMEN PELVIS W Routine 05/23/2024 8 :25 AM CDT Renal angiomyolipoma CREATININE,ISTAT Routine 05/23/2024 8:02 AM CDT Observation or evaluation for suspected condition LIPID PANEL Routine 02/23/2024 10:08 AM CDT Hyperlipidemia, unspecified hyperlipidemia type XR MAMMO ANABELA BILAT SCREEN Routine 07/16/2023 8:10 AM CDT Visit for screening mammogram LC HIV-1/O/2, 4TH GENERATION Routine 12/22/2022 11:35 AM AIRPLANE PILOT Encounter for screening for HIV COLONOSCOPY DIAGNOSTIC Routine 04/01/2021 12:00 AM CDT Abdominal pain, LLQ (left lower quadrant) Rectal bleeding DIRECTOR OF OPTIMIZATION THIN PREP PAP DIAGNOSTIC IMAGED Routine 10/24/2020 10:20 AM AIRPLANE PILOT Vaginal discharge Endometrial cancer, grade I (HC) ANTI HCV Routine 05/10/2019 12:45 PM CDT Encounter for hepatitis C screening test for low risk patient from Last 3 Months or Most Recently Relevant to Health Maintenance Results * HOME SLEEP TEST TYPE 3 PORTABLE (07/11/2024 11:59 PM CDT) Narrative Homer Carmona MD - 07/11/2024 11:59 PM CDT Homer Carmona MD ? 07/13/2024 ??8:58 PM Home Sleep Test Name: ??Rossy Gomez Location: ??[facility] Study notes: This is a single night home sleep apnea test. The study is performed in the context of a clinical suspicion for sleep apnea. Rossy Gomez ( 1960) is studied using a T3 Device using nasal pressure transducer, thoracoabdominal respiratory impedance plethysmography belts, pulse oximetry, snore microphone and actigraphy for body position. ??The study is scored by a RPSGT and interpreted by a Diplomate of the [place] [employer]. ??An [id number] review of the data has been performed by the interpreting physician. Scored following the most current version of the AASM Manual for the Scoring of Sleep and Associated Events. ?? Respiratory Event Index (IDALMIS) ??Oxygen Desaturation Index (GILLIAN) REI4% ??11 ??ODI4%: ??12.9 Supine IDALMIS: 12.7 ??ODI3%: ??12.9 Lateral IDALMIS: 4.5 ??Mic Saturation 85 % ?? Time Below 88% 29.6 ??minutes ?? Weight: Wt Readings from Last 1 Encounters: 06/29/24 97.4 kg (214 lb 12.8 oz) Other data: Recording Duration: 629.9 minutes Time in Bed: ??601.7 minutes Estimated sleep efficiency [%]: 97 % Oximeter Quality: 98.7 % Flow Quality: 100.0 % RIP Quality: 100.0 % Supine time: 459.2 minutes Average SpO2: 90.7 % Pulse Average: 71.6 bpm Additional Comments: None IMPRESSION: Obstructive Sleep Apnea (327.23, G47.33) RECOMMENDATIONS: - Mild sleep apnea is discovered. ??If there is low clinical suspicion of sleep apnea, this could be a false positive. ?? Polysomnography could be considered. - Mild sleep apnea only needs treatment in the presence of attributable sleepiness. ??In the absence of symptoms, treatment may not be indicated. ??Clinical correlation is recommended. - Treatment options for mild sleep apnea include CPAP, a mandibular advancement device, lifestyle modifications such as weight loss, sedative/alcohol avoidance, avoiding supine sleep and surgical therapies can be considered in highly selected patients. - Treatment for obstructive sleep apnea is recommended and CPAP would generally be considered first-line therapy for this severity of sleep apnea. ??Consider auto-titrating CPAP 5-20 cm. - Follow-up with a provider to discuss results is recommended. - Patients should be advised to avoid critical tasks, such as driving, whenever drowsy. - Patients should try to achieve at least 7-8 hours of sleep on a consistent basis. - The IDALMIS is a surrogate for AHI. ??For reimbursement and/or prior authorization purposes, it would be appropriate to list the IDALMIS as an AHI when the latter is accepted, but not the former. Homer Carmona M.D. Diplomate, Board of Sleep Medicine Recording Information Recording Date: 07/11/2024 ??Analysis Start Time: 9:28 PM Recording Tags: ?? Analysis Stop Time: 7:30 AM Device Type: T3S ??Analysis Duration (TRT): 10h 1m ?? Est. Total Sleep Time: 9h 40m Position and Analysis Time Duration Percentage Supine (in TST): 459.2 m 79.1 % Non-Supine (in TST): 121.3 m 20.9 % Upright (in TRT): 21.2 m 3.5 % Movement (in TST): 17.6 m 3 % Invalid Data (Excluded): 0 m 0 % Respiratory Indices Index ?? Total ??Supine ??Non-supine Count Apneas + Hypopneas (AH): 11 /h 12.7 /h 4.5 /h 106 Apneas: 4.7 /h 5.1 /h 3 /h 45 Obstructive (OA): 2.4 /h 2.4 /h 2.5 /h 23 Mixed (MA): 0.3 /h 0.3 /h 0.5 /h 3 Central (CA): 2 /h 2.5 /h 0 /h 19 Hypopneas: ??6.3 /h 7.6 /h 1.5 /h 61 Respiration Rate (per m): 14.6 /m 14.7 /m 14.2 /m ?? Percentage of Sleep Duration Snore: 29.9 % 35.4 % 9.4 % 173.9 m Flow Limitation: 0 % 0 % 0 % 0 m Average Snore Volume 68.8 dB Percent of time greater than 80dB: Percent of 19.5 % Oxygen Saturation (SpO2) Total Supine ?Non-supine Oxygen Desaturation Index (GILLIAN): 12.9 /h ??14.8 /h 5.9 /h Average SpO2: 90.7 % ??90.7 % 90.6 % Minimum SpO2: 85 % ??85 % 86 % SpO2 Duration < 90% 15.6 % (90.6m) 18 % 6.5 % SpO2 Duration <= 88% 5.1 % (29.6m) 6.1 % 1.2 % Pulse in TST ?? Quality ?? Average: 71.6 bpm Oximeter: 98.7 % Maximum: 92 bpm Nasal Cannula: 100 % Minimum: 60 bpm Abdomen RIP: 100 % Duration < 40 bpm: 0 m Thorax RIP: 100 % Duration > 100 bpm: 0 m ? Merle Langford NP [facility] * CBC WITH AUTO DIFFERENTIAL (05/31/2024 9:35 AM CDT) WHITE BLOOD COUNT 8.5 4.5 - 11.0 thou/cu mm 05/31/2024 9:44 AM CDT [facility] RED BLOOD COUNT 4.63 4.00 - 5.20 mil/cu mm 05/31/2024 9:44 AM CDT [facility] HEMOGLOBIN 13.7 12.0 - 16.0 g/dL 05/31/2024 9:44 AM CDT [facility] HEMATOCRIT 40.6 33.0 - 51.0 % 05/31/2024 9:44 AM CDT [facility] MCV 88 80 - 100 fL 05/31/2024 9:44 AM CDT [facility] MCH 29.6 26.0 - 34.0 pg 05/31/2024 9:44 AM CDT [facility] MCHC 33.7 32.0 - 36.0 g/dL 05/31/2024 9:44 AM CDT [facility] RDW 15.1 11.5 - 15.5 % 05/31/2024 9:44 AM CDT [facility] PLATELET COUNT 311 140 - 440 thou/cu mm 05/31/2024 9:44 AM CDT [facility] MPV 9.2 6.5 - 11.0 fL 05/31/2024 9:44 AM CDT [facility] % NEUT 58.1 % 05/31/2024 9:44 AM CDT [facility] % LYMPH 31.9 % 05/31/2024 9:44 AM CDT [facility] % MONO 7.2 % 05/31/2024 9:44 AM CDT [facility] % EOS 2.2 % 05/31/2024 9:44 AM CDT [facility] % BASO 0.6 % 05/31/2024 9:44 AM CDT [facility] ABSOLUTE NEUTROPHILS 4.9 1.7 - 7.0 thou/cu mm 05/31/2024 9:44 AM CDT [facility] ABSOLUTE LYMPHOCYTES 2.7 0.9 - 2.9 thou/cu mm 05/31/2024 9:44 AM CDT [facility] ABSOLUTE MONOCYTES 0.6 <0.9 thou/cu mm 05/31/2024 9:44 AM CDT [facility] ABSOLUTE EOSINOPHILS 0.2 <0.5 thou/cu mm 05/31/2024 9:44 AM CDT [facility] ABSOLUTE BASOPHILS 0.1 <0.3 thou/cu mm 05/31/2024 9:44 AM CDT [facility] Blood BLOOD SPECIMEN / Unknown Butterfly / Unknown 05/31/2024 9:35 AM CDT 05/31/2024 9:37 AM CDT Mary Christianson NP HEMATOLOGY [facility] [address] [place] [address], * (ABNORMAL) VALPROIC ACID TOTAL (05/31/2024 9:35 AM CDT) VALPROIC ACID,TOTAL 43.4(L) 50.0 - 100.0 ug/mL 05/31/2024 6:04 PM CDT [facility] DATE OF LAST DOSE 05/30/2024 05/31/2024 6:04 PM CDT [facility] TIME OF LAST DOSE 8:00 PM 05/31/2024 6:04 PM CDT [facility] Blood BLOOD SPECIMEN / Unknown Butterfly / Unknown 05/31/2024 9:35 AM CDT 05/31/2024 9:37 AM CDT Mary Christianson NP CHEMISTRY [facility] [address] [place] [address], * HEPATIC FUNCTION PANEL (05/31/2024 9:35 AM CDT) ALBUMIN 4.4 4.0 - 4.9 g/dL 05/31/2024 6:04 PM CDT [facility] [facility] PROTEIN,TOTAL 7.2 6.0 - 8.0 g/dL 05/31/2024 6:04 PM CDT [facility] BILIRUBIN,TOTAL 0.3 0.0 - 1.2 mg/dL 05/31/2024 6:04 PM CDT [facility] BILIRUBIN,DIRECT <0.1 0.0 - 0.2 mg/dL 05/31/2024 6:04 PM CDT [facility] BILIRUBIN,INDIRE CT 05/31/2024 6:04 PM CDT [facility] Comment:Unable to calculate, Direct Bili <0.2 ALK PHOSPHATASE 95 35 - 104 IU/L 05/31/2024 6:04 PM CDT [facility] ALT (SGPT) 26 10 - 35 IU/L 05/31/2024 6:04 PM CDT [facility] AST (SGOT) 31 10 - 35 IU/L 05/31/2024 6:04 PM CDT [facility] Blood BLOOD SPECIMEN / Unknown Butterfly / Unknown 05/31/2024 9:35 AM CDT 05/31/2024 9:37 AM CDT Mary Sherry Sammy ROGERS CHEMISTRY [facility] [address] [place] [address], * CT ABDOMEN PELVIS W (05/23/2024 8:25 AM CDT) Anatomical Region Laterality Modality Abdomen, Pelvis, AORTA, LIVER, SPLEEN Computed Tomography 05/23/2024 3:06 PM CDT Impressions 05/23/2024 3:06 PM CDT No acute abdominopelvic process identified. No change. Stable small renal cysts and a single lower pole left renal AML. Please note that all CT scans at this facility use dose modulation, iterative reconstruction, and/or weight-based dosing when appropriate to reduce radiation dose to as low as reasonably achievable. Dictated by Manohar Wong MD @ 05/23/2024 3:06:06 PM (Electronically Signed) Narrative 05/23/2024 3:06 PM CDT For Patients: ??As a result of the Cures Act, medical imaging exams and procedure reports are released immediately into your electronic medical record. ??You may view this report before your referring provider. ??If you have questions, please contact your health care provider. INDICATION: Left renal angiomyolipoma. Follow-up. History of endometrial carcinoma status post hysterectomy and oophorectomy. TECHNIQUE: Contrast-enhanced CT of the abdomen and pelvis. 100 cc nonionic Omnipaque 350 administered. COMPARISON: December 15, 2019. November 11, 2023. FINDINGS: Clear included lung bases. Normal-appearing liver, spleen, pancreas, partly contracted gallbladder, and adrenal glands. Small bilateral renal cysts the largest in the upper pole on the left measuring up to 1.4 cm previously between 1.2 and 1.3 cm. Stable 2.7 cm renal angiomyolipoma arising from the lower pole of the left kidney. No renal stones or hydronephrosis. No stones along the course of the ureters or in the urinary bladder. Scattered vascular calcification within a normal caliber abdominal aorta and iliac arteries. There is no evidence for small or large bowel obstruction or ileus. No ascites or lymphadenopathy. The uterus and ovaries are surgically absent. The urinary bladder is within normal limits. Calcified pelvic phleboliths. The included skeleton is within normal limits. Procedure Note Manohar Wong MD - 05/23/2024 For Patients: As a result of the Cures Act, medical imagingexams and procedure reports are released immediately into your electronicmedical record. You may view this report before your referring provider.If you have questions, please contact your health care provider. INDICATION: Left renal angiomyolipoma. Follow-up. History of endometrial carcinoma status post hysterectomy andoophorectomy. TECHNIQUE: Contrast-enhanced CT of the abdomen and pelvis. 100 cc nonionic Omnipaque 350 administered. COMPARISON: December 15, 2019. November 11, 2023. FINDINGS: Clear included lung bases. Normal-appearing liver, spleen, pancreas, partly contracted gallbladder,and adrenal glands. Small bilateral renal cysts the largest in the upper pole on the leftmeasuring up to 1.4 cm previously between 1.2 and 1.3 cm. Stable 2.7 cm renal angiomyolipoma arising from the lower pole of the leftkidney. No renal stones or hydronephrosis. No stones along the course of the ureters or in the urinary bladder. Scattered vascular calcification within a normal caliber abdominal aortaand iliac arteries. There is no evidence for small or large bowel obstruction or ileus. Noascites or lymphadenopathy. The uterus and ovaries are surgically absent. The urinary bladder is within normal limits. Calcified pelvic phleboliths. The included skeleton is within normal limits. IMPRESSION: No acute abdominopelvic process identified. No change. Stable small renalcysts and a single lower pole left renal AML. Please note that all CT scans at this facility use dose modulation,iterative reconstruction, and/or weight-based dosing when appropriate toreduce radiation dose to as low as reasonably achievable. Dictated by Manohar Wong MD @ 05/23/2024 3:06:06 PM (Electronically Signed) Usmaa Todd MD CT * CREATININE,ISTAT (05/23/2024 8:02 AM CDT) CREATININE, POCT 0.60 0.57 - 1.11 mg/dL 05/23/2024 8:04 AM CDT [facility] eGFR >90 >90 mL/min/1.7 3m2 05/23/2024 8:04 AM CDT [facility] Comment:As of 2021, eG FR is calculated by the CKD-EPI creatinine equation without race adjustment. eGFR can be influenced by muscle mass, exercise, and diet. The reported eGFR is an estimation only and is only applicable if the renal function is stable. Blood BLOOD SPECIMEN / Unknown 05/23/2024 8:02 AM CDT 05/23/2024 8:04 AM CDT Leesa Jaeger DO CHEMISTRY [facility] [address] [place] [address], * (ABNORMAL) LIPID PANEL (02/23/2024 10:08 AM CDT) CHOLESTEROL,TOTAL 216(H) 100 - 199 mg/dL 02/23/2024 7:47 PM CDT [facility] Comment: Cholesterol, Total Reference Ranges Desirable <200 mg/dL Borderline 200-239 mg/dL High >=240 mg/dL TRIGLYCERIDES 105 <150 mg/dL 02/23/2024 7:47 PM CDT [facility] HDL CHOLESTEROL 75 >40 mg/dL 7:47 PM CDT [facility] NON-HDL CHOLESTEROL 141 <145 mg/dl 02/23/2024 7:47 PM CDT [facility] CHOL/HDL RATIO 2.88 <4.50 02/23/2024 7:47 PM CDT [facility] LDL CHOLESTEROL 120 <=130 mg/dL 02/23/2024 7:47 PM CDT [facility] VLDL CHOLESTEROL 21 <=30 mg/dL 02/23/2024 7:47 PM CDT [facility] PROVIDER ORDERED STATUS RANDOM 02/23/2024 7:47 PM CDT [facility] Blood BLOOD SPECIMEN / Unknown Venipuncture / Unknown 02/23/2024 10:08 AM CDT 02/23/2024 10:10 AM CDT Will Delgado MD CHEMISTRY [facility] [address] [place] [address], * XR MAMMO ANABELA BILAT SCREEN (07/16/2023 8:10 AM CDT) Anatomical Region Laterality Modality BREASTS, Breast Left, Breast Right Bilateral Mammography Impressions 07/16/2023 2:38 PM CDT ??There is no radiographic evidence for malignancy. ??Recommend annual mammograms. MAMMOGRAM ASSESSMENT: ??ACR 1 Negative PATIENTS: You will also receive a letter with your examination results in an easy to read format. ??If you have questions about your results, please contact your referring provider. Narrative 07/16/2023 2:38 PM CDT For Patients: As a result of the Century Cures Act, medical imaging exams and procedure reports are released immediately into your electronic medical record. You may view this report before your referring provider. If you have questions, please contact your health care provider. XR MAMMO ANABELA BILAT SCREEN [[id number]] CLINICAL HISTORY: ??This is an asymptomatic 63 y.o. patient. INDICATION FOR EXAM: Mammogram Screening. TECHNIQUE: CC & MLO views were obtained. ??This study was evaluated with the assistance of Computer-Aided Detection. Breast Tomosynthesis was used in interpretation. COMPARISON FILM: Yes 06/02/22 [facility] 05/23/21 [facility] FINDINGS: ??The breasts are heterogeneously dense, which may obscure small masses. There are no dominant masses, suspicious micro calcifications or areas of architectural distortion. Lana Moore MD MAMMO * LC HIV-1/O/2, 4TH GENERATION (12/22/2022 11:35 AM AIRPLANE PILOT) HIV Scr 4th Gen Non Reactive Non Reactive 12/24/2022 10:07 PM AIRPLANE PILOT [facility] Comment: HIV Negative HIV-1/HIV-2 antibodies and HIV-1 p24 antigen were NOT detected. There is no laboratory evidence of HIV infection. Blood BLOOD SPECIMEN / Unknown Venipuncture / Unknown 12/22/2022 11:35 AM AIRPLANE PILOT 12/22/2022 11:39 AM AIRPLANE PILOT Narrative [facility] ([facility]) - 12/24/2022 10:07 PM AIRPLANE PILOT Performed at: ??[address] ??[id number] Sales Teacher: Bradley Lafleur MD, Phone: ??[phone] Lana Moore MD LABORATORY [facility] ([facility]) [facility] [place] [address], * COLONOSCOPY DIAGNOSTIC (04/01/2021 12:00 AM CDT) Lana Moore MD GI PROCEDURE ORD * DIRECTOR OF OPTIMIZATION THIN PREP PAP DIAGNOSTIC IMAGED (10/24/2020 10:20 AM AIRPLANE PILOT) Case Report Gynecologic Cytology Report ? Case: [id number] ? Authorizing Provider: ??Lana Moore MD ? Collected: ? 10/24/2020 1020 ? Ordering Location: ? [facility] ?? Received: ?10/24/2020 1045 ? Clinic ? First Screen: ?Ernst Dial ? Rescreen: ?Philly Nguyen ? Specimen: ?DIRECTOR OF OPTIMIZATION ThinPrep Vial Diagnostic, Vaginal ? 11/01/2020 1:29 PM AIRPLANE PILOT [facility]AT[facility] INTERPRETATION /RESULT NEGATIVE FOR INTRAEPITHELIAL LESION OR MALIGNANCY (NIL) (none) 11/01/2020 1:29 PM AIRPLANE PILOT [facility] ENTRIL LABORATORY IMEN ADEQUACY Satisfactory for evaluation Obscuring Inflammation 11/01/2020 1:29 PM AIRPLANE PILOT [facility] ENTRAL LABORATORY HPV REQUEST HPV if ASCUS 11/01/2020 1:29 PM AIRPLANE PILOT [facility] EN[facility]AL LABORATORY Date of LMP prior to hysterectomyu 11/01/2020 1:29 PM AIRPLANE PILOT [facility] EN[facility] LAB[facility]ORY Last Pap Date prior to hysterectomy 11/01/2020 1:29 PM AIRPLANE PILOT [facility] EN[facility]AL LAB[facility]ORY Last Pap Result NIL 11/01/2020 1:29 PM AIRPLANE PILOT [facility] ENTRAL LABORATORY Abnormal Pap or [place] Bx in last 5 years No 11/01/2020 1:29 PM AIRPLANE PILOT [facility] ENTRAL LABORATORY Menstrual Status Hysterectomy-cervi x absent 11/01/2020 1:29 PM AIRPLANE PILOT [facility] ENTRAL LABORATORY [place] Bx Done Today No 11/01/2020 1:29 PM AIRPLANE PILOT [facility] ENTRAL LABORATORY Additional Information None Given 11/01/2020 1:29 PM AIRPLANE PILOT [facility] ENTRAL LABORATORY Comment: Cytology is screened at [facility] - [address], [place] [address] and [facility] - [address], [place] [address] and [facility] - [address], [place] [address] Interpreted at [facility] - [address], [place] [address] Automated Review Failed 11/01/2020 1:29 PM AIRPLANE PILOT [facility] ENTRAL LAB[facility]ATORY Comment:Processing failed, m anual screening required. ThinPrep Imaging System, [employer] Note The pap test is a screening technique, not a diagnostic procedure. It is used primarily to screen for squamous cancers and precursor lesions. Published studies have shown that it is subject to both false negative and false positive results. The pap test should not be used as the sole means to diagnose or exclude pre-malignant and malignant lesions. 11/01/2020 1:29 PM AIRPLANE PILOT [facility] ENTRAL LABORATORY Other VAGINAL SWAB / Unknown Non-Blood / Unknown 10/24/2020 10:20 AM AIRPLANE PILOT 10/24/2020 10:45 AM AIRPLANE PILOT Comment:Vaginal cuff-- histo ry of endometrial cancer, having pink discharge Lana Moore MD PATHOLOGY/CYTOLOGY Performing Organization Address [facility] Co de Phone Number [facility] LABORATORY-CENTRAL LABORATORY [address] [place] [address], [place] * ANTI HCV (05/10/2019 12:45 PM CDT) HEPATITIS C ANTIBODY Non-React tulio Non-React tulio 05/10/2019 8:29 PM CDT [facility]AL [facility]ATORY Comment:Antibodies to HCV no t detected; does not exclude the possibility of exposure to HCV. Blood BLOOD SPECIMEN / Unknown Venipuncture / Unknown 05/10/2019 12:45 PM CDT 05/10/2019 12:45 PM CDT Lana Moore MD SEND OUTS [facility] LABORAT[facility]-CENTRAL LABORATORY [address] [place] [address], [place] from Last 3 Months or Most Recently Relevant to Health Maintenance Advance Directives * Full Code (Latest Code Status on File) Date Activated Date Inactivated Comments 11/17/2018 1:10 AM 12/03/2018 1:42 PM * Full Code Date Activated Date Inactivated Comments 04/11/2016 11:54 AM 04/11/2016 6:17 PM * Full Code Date Activated Date Inactivated Comments 04/11/2016 8:05 AM 04/11/2016 11:54 AM Care Teams Planograph Operator Relationship Specialty Start Date End Date Leesa Jaeger DO [address] [place] [address] PCP - General Family Practice 12/09/23 Trish Vance MD Oncology - Gynecologic 04/02/16 Mookie Guzman PsyD, LP [address] [place] [address] Psychologist Psychology 02/21/20 Ginna Cooney, RN [address] [place] [address] Account Installer 05/14/21 Manohar Sanon MD [address] [place] [address] Neurology 10/09/22 Raghu Martinez MD [address] [facility] [address] [place] [address] Endocrinology 09/03/23 Usama Todd MD [address] [place] [address] [place] [address] Surgery - Urology 05/30/24
== END 2024-07-20 10:25 | disposition home or self-care (01) ==
LOC: NFLDREF 07-21 08:35
PROVIDERS: PCP Family Medicine; Referring Provider Family Medicine; Visit Provider Nurse Practitioner
DX: R39.15 Urgency of urination (principal); N30.01 Acute cystitis with hematuria
CPT/HCPCS: 87086; 87186

== ENCOUNTER 2024-07-29 14:10 | Outpatient (CLI) | payer MEDICARE, BC, SELFPAY ==
--- OUTSIDE RECORDS SUMMARY | 2024-07-30 14:52 | XMS_ITS | Clinical Summary ---
Author Organization [facility] Address [address] [place] [address] Care Team Providers Care Speech And Hearing Director Name Role Phone Moraima Johns DO Primary Care Provider [phone] Source Comments You are receiving this document [...] for each transition of care or referral. [employer] Allergies Active Allergy Reactions Criticality Noted Date [...] bedtime. Indications: Bipolar Affective DIsorder 09/30/2017 Active Mokena Carbonate 300 MG tabletIndications :Bipolar Affective DIsorder Take 1 Tab by mouth daily. Indications: Bipolar Affective DIsorder 09/30/2017 Active Mokena Carbonate 300 MG tabletIndications :Bipolar Affective DIsorder Take 600 mg by mouth daily at bedtime. Indications: Bipolar Affective DIsorder 09/30/2017 Active propranolol (INDERAL) 10 MG tabletIndications :Mokena-Induced Tremor Take 10 mg by mouth two times a day. 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 [...] Dates Next Due Influenza IIV4 (Quadrivalent) 0.5mL (85335) 06/19,08/06/2017,07/23/2016 Influenza, Unspecified Formulation 08/02/2015 PPSV23 (Pneumovax) [...] on patient's age to complete this topic RSV Aged Out No longer eligi ble [...] ROCCO W CAD Routine 09/03/2017 3:21 PM [facility] Encounter for screening mammogram for malignant neoplasm of breast CORNELIUS (DIABETIC EYE EXAM) 02/19/2017 12:00 AM CDT COLONOSCOPY RESULT 07/21/2016 1: 13 PM CDT from Last 3 Months or Most Recently Relevant to Health Maintenance Results * (ABNORMAL) Hgb A1c (07/01/2018 10:24 AM CDT) Hgb A1c 6.0(H) 4.3 - 5.6 % [facility] Comment: See (NOTE) For patients [...] AM CDT 07/01/2018 10:29 AM CDT Narrative [facility] - 07/01/2018 11:08 AM CDT Performed at [facility],[address] [place] [address],[place] [address], Dir Dr. Twan Araujo Moraima Johns DO LAB_1 Performing Organization Address [facility]/ZIP Co de Phone Number [facility] [address] [place] [address], [facility] [phone] * HIV 1/2 Ag/Ab 4th Generation (07/01/2018 10:22 AM CDT) Pathologist [facility] HIV 1/2 AG/AB 4thGEN Negative (Non Reactive) NEGNR [facility] Comment:HIV-1 p24 Ag and HIV -1/HIV-2 Ab not detected. 07/01/2018 10:2 2 AM CDT 07/01/2018 10:27 AM CDT Narrative [facility] - 07/02/2018 2:10 AM CDT Performed at [facility],[address] [place] [address],[place] [address], Dir Dr. Twan Araujo Moraima Johns DO LAB_1 Performing Organization Address [facility] Co de Phone Number [facility] [address] [place] [address], [facility] [phone] * Basic Metabolic Panel (07/01/2018 10:21 AM CDT) [facility] Sodium 140 136 - 145 mmol/L [facility] Potassium 4.2 3.5 - 5.1 mmol/L [facility] Chloride 107 98 - 109 mmol/L [facility] CO2 26 20 - 29 mmol/L [facility] Anion Gap (calc.) 7 7 - 16 mmol/L [facility] Glucose 115 70 - 180 mg/dl [facility] Calcium 10.4 8.4 - 10.4 mg/dl [facility] BUN 13 7 - 26 mg/dl [facility] Creatinine 0.81 0.55 - 1.02 mg/dl [facility] GFR, Estimated >60 >60 ml/min/1.[address] [place] [address] LAB GFR, Est., If Black >60 >60 ml/min/1.[address] [place] [address] LAB 07/01/2018 10:2 1 AM CDT 07/01/2018 10:26 AM CDT [facility] - 07/01/2018 11:41 AM CDT Performed at [facility],[address] [place] [address],[place] [address], Dir Dr. Twan Araujo Moraimaandrew Irizarryemma RODRIGUEZ LAB_1 Performing Organization Address City/[facility]/ZIP Co de Phone Number [facility] [address] [place] [address], [facility] [phone] * Hepatitis C Antibody, with Reflex (07/01/2018 10:21 AM CDT) Pathologist [facility] Anti-HCV Negative (Non Reactive) [facility] Comment: Antibodies to HCV not detected. Does not exclude the possibility of exposure to HCV. 07/01/2018 10:2 1 AM CDT 07/01/2018 10:26 AM CDT [facility] - 07/02/2018 1:10 PM CDT Performed at [facility], [address] [place] [address] ??[id number] Moraima Roberta Andreas RODRIGUEZ LAB_1 Performing Organization Address City/[facility]/ZIP Co de Phone Number [facility] [address] [place] [address], [facility] [phone] * Microalb/Creat Ratio (07/01/2018 10:20 AM CDT) Albumin, Urine, Random 4.6 mg/L [facility] Creatinine,Ur Random 85 mg/dl [facility] Alb/Creat Ratio, Urine, Random 5 <30 mg/g creatinine [facility] Urine specimen (specimen) 07/01/2018 10:20 AM CDT 07/01/2018 10:25 AM CDT [facility] - 07/01/2018 11:05 AM CDT Performed at [facility],[address] [place] [address],[place] [address], Dir Dr. Twan Araujo Moraima Johns DO LAB_1 Performing Organization Address [facility] [place] [address], [facility] [phone] * Pap Test, Routine (02/05/2018 11:16 AM CDT) Cytology, Pap (NOTE) [place] Cytology Report Patient Name: BOBBY GOMEZ Taken: [...] ?? Microscopic Description Microscopic examination is performed. [facility] Department of Pathology [address] [place] [address] ??[id number] [facility] 02/05/2018 11:1 6 AM CDT 02/05/2018 6:06 PM CDT Rusty Hurd MD LAB_1 Performing Organization Address [facility]/ZIP Co de Phone Number [address] [address], [facility] [phone] * (ABNORMAL) Lipid Panel and Direct LDL(If [...] - 02/02/2018 11:44 AM CDT Performed at [facility], [address] ??[id number] Rusty Hurd MD LAB_1 [facility] [phone] * MM Mammogram Screening Bilat W Rocco W CAD (09/03/2017 3:21 PM [facility]) Anatomical Region Laterality Modality Breast Bilateral Mammography Impressions 09/04/2017 11:43 AM [facility] : ACR BI-RADS Category 1: Negative RECOMMENDATION: Follow Up Imaging in 12 months - Bilateral The results and recommendations of this examination will be communicated to the patient. Narrative 09/04/2017 11:43 AM [facility] MM MAMMOGRAM SCREENING BILAT W ROCCO W CAD performed on 09/03/17 Compared to: 02/21/2016 MAMMO SCREENING W/CAD&ROCCO BILAT, 12/20/2014 [facility] - BILATERAL MAMMOGRAM , and 04/12/2013 [facility] - BILATERAL MAMMOGRAM ?? FINDINGS: [...] Traylor MD - 07/04/2016 8:46 AM CDT [facility] [address] [address] BOBBY GOMEZ [facility]: [phone] DATE OF : 1960 AGE: 56 VISIT/ADMIT DATE: 07/04/2016 LOCATION: [facility] DATE OF PROCEDURE: 07/04/2016 SURGEON: ARLEY TRAYLOR [...] in 10 years. ARLEY TRAYLOR MD AEU/MODL /[id number] cc: RUSTY HURD MD COLONOSCOPY Arley Traylor MD [facility] EXTERNAL RESULTS from Last 3 Months or Most Recently Relevant to Health Maintenance Advance Directives * Full Code (Latest Code Status on File) Date Activated Date Inactivated Comments 09/29/2017 12:09 AM 09/30/2017 7:05 PM Care Teams Speech And Hearing Director Relationship Specialty Start Date End Date Moraima Johns DO [address] [place] [address] PCP - General Family Practice 07/07/18
--- OUTSIDE RECORDS SUMMARY | 2024-07-30 14:53 | XMS_ITS | Encounter Summary ---
Author Organization [facility] Address [address], [place] [address] Care Team Providers Care Genomics Scientist Name Role Phone Moraima Johns DO Primary Care Provider [phone] Encounter Details Date Type Department Care Team [...] on filedocumented in this encounter Care Teams Genomics Scientist Relationship Specialty Start Date End Date Moraima Johns DO [address] [place] [address] PCP - General Family Practice 07/07/18 documented as of this encounter
--- OUTSIDE RECORDS SUMMARY | 2024-07-30 14:53 | XMS_ITS | Continuity of Care Document ---
Author Organization [facility] Address [address] [address] [place] [address] Phone Care Team Providers Care Warehouse Processor Name Role Phone Aries Barth MD, Juni Unavailable Unavailabl e Allergies, Adverse Reactions, Alerts Substance Reaction Status Criticality adhesive tape blisters Active No Information codeine Dont recall Active No Information OXYCODONE HCL ItchingItching Active No Informati on acetaminophen Itching Active No Information Sulfa (Sulfonamide Antibiotics) Nausea/Vomiting Active No Information Advance Directives Directive Yes / No Effective Date File Name No Information Encounters Encounter Description Practice Location Reason(s) For Visit Diagnoses Date Provider Providers Copied on Encounter [facility], [address] [address], [place], [place], [id number], [place] tel:[phone] [facility] No Information 4 Aries Alfredo. [address] [place] [address], [id number], [place]. tel:[phone] [facility], [address] [address], [place], [place], [id number], [place] tel:[phone] [facility] No Information 2 Brandan Garsia. [address], [id number], [place]. tel:[phone] Referring Provider: Lana Moore MD, [address] [place], [address]. tel:[phone] [facility], [address] [address], [place], [id number], [place] tel:[phone] No Information No Information Referring Provider: Lana Moore MD, [address] [place], [address]. tel:[phone] Family History Family Member Type Diagnosis Age At Onset Mother Problem (finding) Cancer, cervical Brother Problem (finding) Cancer, throat Sister Problem (finding) Gallbladder disease Brother Problem (finding) Cancer, thyroid Father Problem (finding) Cancer, liver Father Problem (finding) Alcoholism Mother Problem (finding) Cancer, ovarian Mother Problem (finding) Gallbladder disease Mother Problem (finding) Colon polyps Mother Problem (finding) Cancer, thyroid Mother Problem (finding) Cancer, uterine Sister Problem (finding) Asthma Brother Problem (finding) Thyroid disorder Mother Problem (finding) Cancer, endometrial Father Problem (finding) Cancer, skin Brother Problem (finding) Leukemia Mother Problem (finding) Thyroid disorder Son Problem (finding) Alcoholism Immunizations Vaccine Date Status Comments SARS-COV-2 (COVID-19) vaccin e, mRNA, spike protein, LNP, preservative free, 30 mcg/0.3mL dose, sukhi-sucrose formulation administered Note: [facility] bi- directional interface ; Source: Other Registry SARS-COV-2 (COVID-19) vaccin e, mRNA, spike protein, LNP, preservative free, 30 mcg/0.3mL dose administered Note: [facility] bi-direct ional interface ; Source: Other Registry SARS-COV-2 (COVID-19) vaccin e, mRNA, spike protein, LNP, preservative free, 30 mcg/0.3mL dose administered Note: [facility] bi-direct ional interface ; Source: Other Registry SARS-COV-2 (COVID-19) vaccin e, mRNA, spike protein, LNP, preservative free, 30 mcg/0.3mL dose administered Note: [facility] bi-direct ional interface ; Source: Other Registry zoster vaccine recombinant administered N ote: [facility] bi-directional interface ; Source: Other Registry Afluria Qd administered Note: [facility] bi-directional interface ; Source: Other Registry zoster vaccine recombinant administered N ote: [facility] bi-directional interface ; Source: Other Registry Afluria Qd administered Note: [facility] bi-directional interface ; Source: Other Registry Afluria Qd administered Note: [facility] bi-directional interface ; Source: Other Registry Prosperuria Qd administered Note: [facility] bi-directional interface ; Source: Other Registry influenza virus vaccine, unspecified formulation administered Note: [facility] bi-di rectional interface ; Source: Other Registry Pneumovax 23 administered Note: [facility] bi-d irectional interface ; Source: Other Registry tetanus toxoid, reduced diphtheria toxoid, and acellular pertussis vaccine, adsorbed administered Note: [facility] b i-directional interface ; Source: Other Registry Payers Payer name Insurance type Covered democrat ID Authoriza tion(s) No Information Social History Type Description Quantity Date Captured Comments Sex Female Smoking Status No Information Chief Complaint And Reason For Visit No Information Reason For Referral Reason For Referral No Information History Of Present Illness Encounter Date Complaint History Of Prese nt Illness GI Symptoms or Concerns Functional Status Date Functional Assessmen t No Information Instructions Date Instruction Additional Infor mation No Information Assessments Type Assessment Date No Information Patient Care Teams Name Effective Dates (start - stop) Status Members No Information
--- OUTSIDE RECORDS SUMMARY | 2024-07-30 14:53 | XMS_ITS | Encounter Summary ---
[facility] Address [address], [place] [address] Care Team Providers Care Special Education Teachers Name Role Phone Moraima Johns DO Primary Care Provider [phone] Encounter Details Date Type Department Care Team (Late st Contact Info) Description 07/07/2018 Outside Hospital External to External, Provider No address [address] MENTAL HEALTH BEHAVIORAL HEALTH RECORDS Social [...] on filedocumented in this encounter Care Teams Special Education Teachers Relationship Specialty Start Date End Date Moraima Johns DO [address] [place] [address] PCP - General Family Practice 07/07/18 documented as of this encounter
--- OUTSIDE RECORDS SUMMARY | 2024-07-30 14:53 | XMS_ITS | Encounter Summary ---
Author Organization [facility] Address [address], [place] [address] Care Team Providers Care Photographic Process Attendant Name Role Phone Moraima Johns DO Primary Care Provider +1- [phone] Encounter Details Date Type Department Care Team (Late st Contact Info) Description 04/07/2018 Consent for Procedure/Treatme [facility], Provider CONSENT FOR SURGERY OR INVASIVE PROCEDURE [...] on filedocumented in this encounter Care Teams Photographic Process Attendant Relationship Specialty Start Date End Date Moraima Johns DO [address] [place] [address] PCP - General Family Practice 07/07/18 documented as of this encounter
--- OUTSIDE RECORDS SUMMARY | 2024-07-30 14:53 | XMS_ITS | Encounter Summary ---
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
--- OUTSIDE RECORDS SUMMARY | 2024-07-30 14:53 | XMS_ITS | Encounter Summary ---
[facility] Organization [facility] Address [address], [place] [address] Care Team Providers Care Government Employee Name Role Phone Moraima Johns DO Primary Care Provider [phone]- [phone] Encounter Details Date Type Department Care Team (Late st Contact Info) Description 07/04/2016 Consent for Procedure/Treatme [facility], Provider [facility] CONSENT FOR SURGERY OR PROCEDURE Social History [...] on filedocumented in this encounter Care Teams Government Employee Relationship Specialty Start Date End Date Moraima Johns DO [address] [place] [address] PCP - General Family Practice 07/07/18 documented as of this encounter
--- OUTSIDE RECORDS SUMMARY | 2024-07-30 14:53 | XMS_ITS | Encounter Summary ---
[facility] Address [address], [place] [address] Care Team Providers Care Controlled Atmospheric Furnace Brazer Name Role Phone Moraima Johns DO Primary Care Provider [phone] Encounter Details Date Type Department Care Team [...] on filedocumented in this encounter Care Teams Controlled Atmospheric Furnace Brazer Relationship Specialty Start Date End Date Moraima Johns DO [address] [place] [address] PCP - General Family Practice 07/07/18 documented as of this encounter
--- OUTSIDE RECORDS SUMMARY | 2024-07-30 14:53 | XMS_ITS | Encounter Summary ---
Author Organization [facility] Address [address] [address] Care Team Providers Care Portable Sawmill Operator Name Role Phone Moraima Johns DO Primary Care Provider +1- [phone] Encounter Details Date Type Department Care Team (Late st Contact Info) Description 05/24/2018 [facility] [address] [place], [place] [id number] [facility], Provider CONSENT FOR SLEEP STUDY Social History [...] on filedocumented in this encounter Care Teams Portable Sawmill Operator Relationship Specialty Start Date End Date Moraima Johns DO [address] [place] [address] PCP - General Family Practice 07/07/18 documented as of this encounter
--- OUTSIDE RECORDS SUMMARY | 2024-07-30 14:53 | XMS_ITS | Encounter Summary ---
[facility] Address [address] [address] Care Team Providers Care Level Vial Inside Grinder Name Role Phone Moraima Johns DO Primary Care Provider +1- [phone] Encounter Details Date Type Department Care Team (Late st Contact Info) Description 01/20/2017 Consent for Procedure/Treatme [facility], Provider CONSENT FOR SLEEP STUDY Social [...] on filedocumented in this encounter Care Teams Level Vial Inside Grinder Relationship Specialty Start Date End Date Moraima Johns DO [address] [place] [address] PCP - General Family Practice 07/07/18 documented as of this encounter
--- OUTSIDE RECORDS SUMMARY | 2024-07-30 14:53 | XMS_ITS | Encounter Summary ---
Author Organization [facility] Address [address], [place] [address] Care Team Providers Care Chemist Helper Name Role Phone Moraima Johns DO Primary Care Provider +1- [phone] Encounter Details Date Type Department Care Team (Late st Contact Info) Description 05/21/[address] [facility] Imaging [address] [place] [address] [address] [facility], Provider LV MRI SAFETY AND HEALTH [...] on filedocumented in this encounter Care Teams Chemist Helper Relationship Specialty Start Date End Date Moraima Johns DO [address] [place] [address] PCP - General Family Practice 07/07/18 documented as of this encounter
--- OUTSIDE RECORDS SUMMARY | 2024-07-30 14:53 | XMS_ITS | Encounter Summary ---
Author Organization [facility] Address [address], [place] [address] Care Team Providers Care Beam Warper Name Role Phone Moraima Johns DO Primary Care Provider +1- [phone] Encounter Details Date Type Department Care Team (Late st Contact Info) Description 08/13/2018 Correspondence [facility] Radiology [address] [place] [address] Radiology, Provider MRI SAFETY SHEET AND COMPATIBILITY [...] on filedocumented in this encounter Care Teams Beam Warper Relationship Specialty Start Date End Date Moraima Johns DO [address] [place] [address] PCP - General Family Practice 07/07/18 documented as of this encounter
--- OUTSIDE RECORDS SUMMARY | 2024-07-30 14:53 | XMS_ITS | Encounter Summary ---
[facility] Address [address], [place] [address] Care Team Providers Care Information Systems Security Specialist Name Role Phone Moraima Johns DO Primary Care Provider +1- [phone] Encounter Details Date Type Department Care Team (Late st Contact Info) Description 07/04/2016 Consent for Procedure/Treatme [facility], Provider [facility] CONSENT FOR SURGERY OR PROCEDURE Social History [...] on filedocumented in this encounter Care Teams Information Systems Security Specialist Relationship Specialty Start Date End Date Moraima Johns DO [address] [place] [address] PCP - General Family Practice 07/07/18 documented as of this encounter
--- OUTSIDE RECORDS SUMMARY | 2024-07-30 14:53 | XMS_ITS | Encounter Summary ---
Author Organization [facility] Address [address] [address] Care Team Providers Care Hydraulic Blocker Name Role Phone Moraima Johns DO Primary Care Provider +1- [phone] Encounter Details Date Type Department Care Team (Late st Contact Info) Description 04/06/2018 Consent for Procedure/Treatme [facility] CARDIOLOGY NON-INVASIVE [address] [place] [address] [facility], Provider CONSENT FOR CARDIAC STRESS TEST Social [...] on filedocumented in this encounter Care Teams Hydraulic Blocker Relationship Specialty Start Date End Date Moraima Johns DO [address] [place] [address] PCP - General Family Practice 07/07/18 documented as of this encounter
--- OUTSIDE RECORDS SUMMARY | 2024-07-30 14:53 | XMS_ITS | Encounter Summary ---
Author Organization [facility] Address [address], [place] [address] Care Team Providers Care Certification Engineer Name Role Phone Moraima Johns DO Primary Care Provider +1- [phone] Encounter Details Date Type Department Care Team (Late st Contact Info) Description 07/04/2016 Consent for Procedure/Treatme [facility] ANESTHESIA [address] [place], [place] [id number] Shayne Young, OPTICAL ENGINEER, ACADEMIC HOSPITALIST CONSENT FOR ANESTHESIA Social History Tobacco Use [...] on filedocumented in this encounter Care Teams Certification Engineer Relationship Specialty Start Date End Date Moraima Johns DO [address] [place] [address] PCP - General Family Practice 07/07/18 documented as of this encounter
--- OUTSIDE RECORDS SUMMARY | 2024-07-30 14:53 | XMS_ITS | Encounter Summary ---
Author [facility] Address [address], [place] [address] Care Team Providers Care Executive Officer Special Warfare Team Name Role Phone Moraima Johns DO Primary Care Provider +[phone] Encounter Details Date Type Department Care Team (Late st Contact Info) Description 09/24/2018 Correspondence External to External, [place] [address] MICHAEL COGNITIVE ASSESSMENT ([facility]) Social History Tobacco [...] on filedocumented in this encounter Care Teams Executive Officer Special Warfare Team Relationship Specialty Start Date End Date Moraima Johns DO [address] [place] [address] PCP - General Family Practice 07/07/18 documented as of this encounter
--- OUTSIDE RECORDS SUMMARY | 2024-07-30 14:53 | XMS_ITS | Clinical Summary ---
Author Organization [employer] Address [place], [place] [address] Care Team Providers Care Manganese Wheeler Name Role Phone Trish Vance MD Unavailable [phone] Mookie Guzman PsyD, WOODY Unavailable Ginna Cooney RN Unavailable Manohar Sanon MD Unavailable Raghu Martinez MD Unavailable [phone] Leesa Jaeger DO Primary Care Provider [phone] Usama Todd MD Unavailable Allergies Active Allergy [...] inflammation and submucosal hemorrhage Pap Plan 11/02/2020: MEDICAL SALES SPECIALIST/ONC referral Obstructive sleep apnea syndrome 07/01/2017 03/03/2024 Type 2 diabetes mellitus without complication 10/09/20 16 12/15/2023 Acute metabolic encephalopathy 03/28/2021 Agitation 03/28/2021 Serotonin syndrome Sepsis 03/28/2021 Hypernatremia 03/28/2021 Cancer 03/28/2021 Overview (12/07/2020): endometrial cancer Plan: MEDICAL SALES SPECIALIST/ONC referral 11/02/2020 Encounters Date Type Department Care Team Description 07/30/2024 Travel 07/29/2024 Nurse Triage [facility] [address] [place] [address] Leesa Jaeger, DO Dizziness 07/28/2024 9:45 AM CDT Telemedicine [facility] [address] [place] [address] Mookie Guzman PsyD, LP Individual Therapy; Telehealth 07/23/2024 Travel 07/12/2024 7:30 AM CDT Nurse/Clinic Staff Only [facility] [address] [facility] [place] [address] Testing (HST Return/Download) 07/12/2024 Travel 07/11/2024 1:45 PM CDT Nurse/Clinic Staff Only [address] [place] [address] Testing (HSt Setup) 07/11/2024 Procedure Only [address] [place] [address] Homer Carmona MD Results (HST) 07/10/2024 Travel 07/07/2024 8:00 AM CDT Office Visit [facility] [place] [facility] [address] Mookie Guzman PsyD, LP Individual Therapy 07/06/2024 Travel 06/29/2024 10:25 AM CDT Office [place] [address] Leesa Jaeger, Follow Up (Had outside allergy testing, brought in documents); Hip Pain/problem (Right hip pain, may be from plane ride. hurts to put pressure on it, 1 day); Immunization/Injection 06/29/2024 Travel 06/24/2024 Travel 06/01/2024 Nurse Triage Rust Sam [facility] [address] Leesa Jaeger, Arm Pain/problem (Pain in arm after lab draw) 05/31/2024 8:15 AM CDT Office Visit [facility] Sam [facility] [place] [address] Mookie Guzman PsyD, LP Individual Therapy 05/31/2024 7:30 AM CDT Office Visit [address] [place] [address] Mary Christianson NP Follow Up; Medication Management (feeling, good) 05/30/2024 4:05 PM CDT Office Visit [address] [address] Leesa Jaeger DO Musculoskeletal Problem; Hip Pain/problem (ongoing for 3-4 days. thinks it could be related to sleeping on the couch while dog sitting. ) 05/30/2024 8:00 AM CDT Office Visit [address] [address] Usama Todd MD Follow Up (Renal angiomyolipoma) 05/30/2024 Travel 05/28/2024 Travel 05/27/[address] [address] Lana Moore MD Refill Request (Rosuvastatin) 05/27/[address] [address] Maite Alaniz NP Refill Request (Solifenacin Succinate) 05/24/2024 7:25 AM CDT Telemedicine [address] [address] Merle Langfrod NP Sleep Follow-up (Med check); Telehealth (Virtual visit, no vitals taken.) 05/23/2024 8:00 AM CDT Ancillary Procedure [address] [address] 05/23/2024 7:45 AM CDT Orders Only [address] [address] Lab, [place] [facility] 05/22/2024 Travel 05/18/2024 Travel 05/12/2024 7:30 AM CDT Office Visit [address] [address] Leesa Jaeger DO Allergic Reaction (04/29. Used latex gloves, got rash right away. Had sores on tongue. ) 05/12/2024 Travel from Last 3 Months Immunizations Name [...] Answer Date Recorded PHQ-2 TOTAL SCORE 1 07/27/2024 Social Connections Answer Date Recorded Frequency of [...] Orientation Straight 08/02/2021 10 :18 AM CDT Obstetrics History Para Term AB IAB SAB [...] ??C (98.3 ??F) 10/28/2023 1 1:37 AM SPOT BILLING CLERK Respiratory Rate 18 10/28/2023 11:3 7 AM SPOT BILLING CLERK Oxygen Saturation 96% 04/26/2024 8:49 AM CDT Inhaled Oxygen Concentration - - Weight 97.4 kg (214 lb 12.8 oz) 024 10:27 AM CDT Height 160 cm (5' 3) 03/03/2024 7:30 AM CDT Body Mass Index 38.05 03/03/2024 7:30 AM CDT Plan of Treatment Upcoming Encounters Date Type Department Care Team (Late st Contact Info) Description 08/04/2024 7:30 AM CDT Office Visit [facility] [address] [place] [address] Mary Christianson NP [address] [place] [address] 08/08/2024 7:00 AM CDT Ancillary Procedure [facility] [address] [place] [address] 08/10/2024 9:45 AM CDT Office Visit [facility] [address] [place] [address] Mookie Guzman PsyD, LP [address] [place] [address] 08/22/2024 7:40 AM SPOT BILLING CLERK Office Visit [facility] [address] [place] [address] Mando Oleary MD [address] [place] [address] 08/22/2024 11:00 AM SPOT BILLING CLERK Appointment [facility] [address] [place], [place] [id number] Dillon Del Toro, RD [address] [place] [address] 08/23/2024 7:50 AM SPOT BILLING CLERK Telemedicine [facility] [address] [place] [address] Merle Langford NP [address] [place] [address] 08/24/2024 9:30 AM SPOT BILLING CLERK Telemedicine [facility] [address] [facility] [address] [place], [place] [id number] Raghu Martinez MD 225 [facility] [address] [facility] [address] [place] [address] 11/23/2024 9:00 AM SPOT BILLING CLERK Office Visit [facility] [address] [place] [address] Manohar Sanon MD [address] [facility] [place] [address] 11/24/2024 12:45 PM SPOT BILLING CLERK Office Visit [facility] 100 [facility] [place] [address] Zachary Andre MD [address] [place] [address] Health Maintenance Due Date Last Done Comments COVID-19 vaccine series (2023- season) 2024 08/13/2023, 09/03/2022, 01/29/2022, Additional history exists Mammogram for age 45-75 07/16/2024 07/16/20, 06/02/2022, 05/23/2021, Additional history exists BMI (ht and wt on same day) for age 18+ 03/03/2025 03/03/2024, 12/14/2023, 11/30/2023, Additional history exists Depression screening for age 12+ 07/29/2025 07/29/2024, 07/28/2024, 07/27/2024, Additional history exists Colonoscopy through age 75 04/01/202804/01, 04/01/2021, 07/04/2016 (Completed outside of [facility]) Lipids for age 45-75 02/22/2029 02/23/2024, 03/10/2023, [...] AUTO DIFFERENTIAL Routine 05/31/2024 9:35 AM CDT long term use of drug HEPATIC FUNCTION PANEL Routine 05/31/2024 9:35 AM CDT snf use of drug CBC WITH AUTO DIFFERENTIAL Routine 05/31/2024 9:35 AM CDT snf use of drug VALPROIC ACID TOTAL Routine 05/31/2024 9 :35 AM CDT long term use of drug CT ABDOMEN PELVIS W Routine 05/23/2024 8 :25 AM CDT Renal angiomyolipoma CREATININE,ISTAT Routine 05/23/2024 8:02 AM CDT Observation or evaluation for suspected condition LIPID PANEL Routine 02/23/2024 10:08 AM CDT Hyperlipidemia, unspecified hyperlipidemia type XR MAMMO ANABELA BILAT SCREEN Routine 07/16/2023 8:10 AM CDT Visit for screening mammogram LC HIV-1/O/2, 4TH GENERATION Routine 12/22/2022 11:35 AM SPOT BILLING CLERK Encounter for screening for HIV COLONOSCOPY DIAGNOSTIC Routine 04/01/2021 12:00 AM CDT Abdominal pain, LLQ (left lower quadrant) Rectal bleeding MEDICAL SALES SPECIALIST THIN PREP PAP DIAGNOSTIC IMAGED Routine 10/24/2020 10:20 AM SPOT BILLING CLERK Vaginal discharge Endometrial cancer, grade I (HC) [...] Home Sleep Test Name: ??Rossy Gomez Location: ??[facility] Study notes: This is a single night [...] and interpreted by a Diplomate of the [place] [employer] of Sleep Medicine. ??An [id number] review of the data has been performed [...] is accepted, but not the former. Homer Alvarezomate, Board of Sleep Medicine Recording Information Recording [...] 100 bpm: 0 m ? Merle Langford [facility] * CBC WITH AUTO DIFFERENTIAL (05/31/2024 9:35 AM CDT) [facility] WHITE BLOOD COUNT 8.5 4.5 - 11.0 thou/cu mm 05/31/2024 9:44 AM CDT [facility] RED BLOOD COUNT 4.63 4.00 - 5.20 mil/cu mm 05/31/2024 9:44 AM CDT [facility] HEMOGLOBIN 13.7 12.0 - 16.0 g/dL 05/31/2024 9:44 AM CDT [facility] HEMATOCRIT 40.6 33.0 - 51.0 % 05/31/2024 9:44 AM CDT [facility] MCV 88 80 - 100 fL 05/31/2024 9:44 AM CDT [facility] MCH 29.6 26.0 - 34.0 pg 05/31/2024 9:44 AM CDT [facility] MCHC 33.7 32.0 - 36.0 g/dL 05/31/2024 9:44 AM CDT [facility] RDW 15.1 11.5 - 15.5 % 05/31/2024 9:44 AM CDT [facility] PLATELET COUNT 311 140 - 440 thou/cu mm 05/31/2024 9:44 AM CDT [facility] MPV 9.2 6.5 - 11.0 fL 05/31/2024 9:44 AM CDT [facility] % NEUT 58.1 % 05/31/2024 9:44 AM CDT [facility] % LYMPH 31.9 % 05/31/2024 9:44 AM CDT [facility] % MONO 7.2 % 05/31/2024 9:44 AM CDT [facility] % EOS 2.2 % 05/31/2024 9:44 AM CDT [facility] % BASO 0.6 % 05/31/2024 9:44 AM CDT [facility] ABSOLUTE NEUTROPHILS 4.9 1.7 - 7.0 thou/cu mm 05/31/2024 9:44 AM CDT [facility] ABSOLUTE LYMPHOCYTES 2.7 0.9 - 2.9 thou/cu mm 05/31/2024 9:44 AM CDT [facility] ABSOLUTE MONOCYTES 0.6 <0.9 thou/cu mm 05/31/2024 9:44 AM CDT [facility] ABSOLUTE EOSINOPHILS 0.2 <0.5 thou/cu mm 05/31/2024 9:44 AM CDT [facility] ABSOLUTE BASOPHILS 0.1 <0.3 thou/cu mm 05/31/2024 9:44 AM CDT [facility] Blood BLOOD SPECIMEN / Unknown Butterfly / Unknown 05/31/2024 9:35 AM CDT 05/31/2024 9:37 AM CDT Mary Christianson NP HEMATOLOGY [facility] [address] [place] [address], * (ABNORMAL) VALPROIC ACID TOTAL (05/31/2024 9:35 AM CDT) VALPROIC ACID,TOTAL 43.4(L) 50.0 - 100.0 ug/mL 05/31/2024 6:04 PM CDT [facility] DATE OF LAST DOSE 05/30/2024 05/31/2024 6:04 PM CDT [facility] TIME OF LAST DOSE 8:00 PM 05/31/2024 6:04 PM CDT [facility] Blood BLOOD SPECIMEN / Unknown Butterfly / Unknown 05/31/2024 9:35 AM CDT 05/31/2024 9:37 AM CDT Mary Christianson NP CHEMISTRY [facility] [address] [place] [address], * HEPATIC FUNCTION PANEL (05/31/2024 9:35 AM CDT) Pathologist [facility] ALBUMIN 4.4 4.0 - 4.9 g/dL 05/31/2024 6:04 PM CDT [facility] PROTEIN,TOTAL 7.2 6.0 - 8.0 g/dL 05/31/2024 6:04 PM CDT [facility] BILIRUBIN,TOTAL 0.3 0.0 - 1.2 mg/dL 05/31/2024 6:04 PM CDT [facility] BILIRUBIN,DIRECT <0.1 0.0 - 0.2 mg/dL 05/31/2024 6:04 PM CDT [facility] BILIRUBIN,INDIRE CT 05/31/2024 6:04 PM CDT [facility] Comment:Unable to calculate, Direct Bili <0.2 ALK PHOSPHATASE 95 35 - 104 IU/L 05/31/2024 6:04 PM CDT [facility] ALT (SGPT) 26 10 - 35 IU/L 05/31/2024 6:04 PM CDT [facility] AST (SGOT) 31 10 - 35 IU/L 05/31/2024 6:04 PM CDT [facility] Blood BLOOD SPECIMEN / Unknown Butterfly / Unknown 05/31/2024 9:35 AM CDT 05/31/2024 9:37 AM CDT Mary Christianson [facility] CHEMISTRY [facility] [address] [place] [address], [place] * CT ABDOMEN PELVIS W (05/23/2024 8:25 [...] For Patients: ??As a result of the Century Cures Act, [...] result of the Century Cures Act, medical imagingexams and procedure reports [...] MD @ 05/23/2024 3:06:06 PM (Electronically Signed) Usama Todd MD CT * CREATININE,ISTAT (05/23/2024 8:02 AM CDT) CREATININE, POCT 0.60 0.57 - 1.11 mg/dL 05/23/2024 8:04 AM CDT [facility] eGFR >90 >90 mL/min/1.7 3m2 05/23/2024 8:04 AM CDT [facility] Comment:As of 2021, eG FR is calculated by the CKD-EPI creatinine equation without race adjustment. eGFR can be influenced by muscle mass, exercise, and diet. The reported eGFR is an estimation only and is only applicable if the renal function is stable. Blood BLOOD SPECIMEN / Unknown 05/23/2024 8:02 AM CDT 05/23/2024 8:04 AM CDT Leesa Jaeger DO CHEMISTRY [facility] [address] [place] [address], * (ABNORMAL) LIPID PANEL (02/23/2024 10:08 AM CDT) CHOLESTEROL,TOTAL 216(H) 100 - 199 mg/dL 02/23/2024 7:47 PM CDT [facility] Comment: Cholesterol, Total Reference Ranges Desirable <200 mg/dL Borderline 200-239 mg/dL High >=240 mg/dL TRIGLYCERIDES 105 <150 mg/dL 02/23/2024 7:47 PM CDT [facility] HDL CHOLESTEROL 75 >40 mg/dL 7:47 PM CDT [facility] NON-HDL CHOLESTEROL 141 <145 mg/dl 02/23/2024 7:47 PM CDT [facility] CHOL/HDL RATIO 2.88 <4.50 02/23/2024 7:47 PM CDT [facility] LDL CHOLESTEROL 120 <=130 mg/dL 02/23/2024 7:47 PM CDT [facility] VLDL CHOLESTEROL 21 <=30 mg/dL 02/23/2024 7:47 PM CDT [facility] PROVIDER ORDERED STATUS RANDOM 02/23/2024 7:47 PM CDT [facility] Blood BLOOD SPECIMEN / Unknown Venipuncture / Unknown 02/23/2024 10:08 AM CDT 02/23/2024 10:10 AM CDT Will Delgado MD CHEMISTRY [facility] [address] [place] [address], * XR MAMMO ANABELA BILAT SCREEN (07/16/2023 [...] care provider. XR MAMMO ANABELA BILAT SCREEN [[id number]] CLINICAL HISTORY: ??This is an asymptomatic 63 y.o. patient. INDICATION FOR EXAM: Mammogram Screening. TECHNIQUE: CC & MLO views were obtained. ??This study was evaluated with the assistance of Computer-Aided Detection. Breast Tomosynthesis was used in interpretation. COMPARISON FILM: Yes 06/02/22 [facility] [employer] 05/23/21 [facility] FINDINGS: ??The breasts are heterogeneously dense, which may obscure small masses. There are no dominant masses, suspicious micro calcifications or areas of architectural distortion. Lana Moore MD MAMMO * LC HIV-1/O/2, 4TH GENERATION (12/22/2022 11:35 AM SPOT BILLING CLERK) Pathologist [facility] HIV Scr 4th Gen Non Reactive Non Reactive 12/24/2022 10:07 PM SPOT BILLING CLERK [facility] ([facility]) Comment: HIV Negative HIV-1/HIV-2 antibodies and HIV-1 p24 antigen were NOT detected. There is no laboratory evidence of HIV infection. Blood BLOOD SPECIMEN / Unknown Venipuncture / Unknown 12/22/2022 11:35 AM SPOT BILLING CLERK 12/22/2022 11:39 AM SPOT BILLING CLERK Narrative [facility] ([facility]) - 12/24/2022 10:07 PM SPOT BILLING CLERK Performed at: ??[address] ??[id number] Copra Processor: Bradley Lafleur MD, Phone: ??[phone] Lana Moore MD LABORATORY [facility] ([facility]) [address] [place] [address] * COLONOSCOPY DIAGNOSTIC (04/01/2021 12:00 AM CDT) Lana Moore MD GI PROCEDURE ORD * MEDICAL SALES SPECIALIST THIN PREP PAP DIAGNOSTIC IMAGED (10/24/2020 10:20 AM SPOT BILLING CLERK) [facility] Case Report Gynecologic Cytology Report ? Case: [id number] ? Authorizing Provider: ??Lana Moore MD ? Collected: ? 10/24/2020 1020 ? Ordering Location: ? [facility] ?? Received: ?10/24/2020 1045 ? Clinic ? First Screen: ?Ernst Dial ? Rescreen: ?Philly Nguyen ? Specimen: ?MEDICAL SALES SPECIALIST ThinPrep Vial Diagnostic, Vaginal ? 11/01/2020 1:29 PM [email or web address] LABORATORY-C ENTRAL LABORATORY INTERPRETATION /RESULT NEGATIVE FOR INTRAEPITHELIAL LESION OR MALIGNANCY (NIL) (none) 11/01/2020 1:29 PM [facility] ENTRAL LABORATORY IMEN ADEQUACY Satisfactory for evaluation Obscuring Inflammation 11/01/2020 1:29 PM SPOT BILLING CLERK [facility] ENTRAL LABORATORY HPV REQUEST HPV if ASCUS 11/01/2020 1:29 PM SPOT BILLING CLERK [email or web address] LABORATORY-C ENTRAL LABORATORY Date of LMP prior to hysterectomyu 11/01/2020 1:29 PM SPOT BILLING CLERK [email or web address] LABORATORY-C ENTRAL LABORATORY Last Pap Date prior to hysterectomy 11/01/2020 1:29 PM [facility] Last Pap Result NIL 11/01/2020 1:29 PM SPOT BILLING CLERK [facility] Abnormal Pap or Keyes Bx in last 5 years No 11/01/2020 1:29 PM SPOT BILLING CLERK [facility] Menstrual Status Hysterectomy-cervi x absent 11/01/2020 1:29 PM SPOT BILLING CLERK [facility] Keyes Bx Done Today No 11/01/2020 1:29 PM SPOT BILLING CLERK [facility] Additional Information None Given 11/01/2020 1:29 PM SPOT BILLING CLERK [facility] Comment: Cytology is screened at [facility] Laboratory - [address], [place] [address] and [facility] - [address], [place] [address] and [facility] - [address] [place] [address] Interpreted at [facility] - [address], [place] [address] Automated Review Failed 11/01/2020 1:29 PM SPOT BILLING CLERK [facility] Comment:Processing failed, m anual screening required. ThinPrep Imaging System, [employer] Note The pap test is a screening technique, not a diagnostic procedure. It is used primarily to screen for squamous cancers and precursor lesions. Published studies have shown that it is subject to both false negative and false positive results. The pap test should not be used as the sole means to diagnose or exclude pre-malignant and malignant lesions. 11/01/2020 1:29 PM SPOT BILLING CLERK [facility] Other VAGINAL SWAB / Unknown Non-Blood / Unknown 10/24/2020 10:20 AM SPOT BILLING CLERK 10/24/2020 10:45 AM SPOT BILLING CLERK Comment:Vaginal cuff-- histo ry of endometrial cancer, having pink discharge Lana Moore MD PATHOLOGY/CYTOLOGY [facility] [address] [place] [address], [place] * ANTI HCV (05/10/2019 12:45 PM CDT) HEPATITIS C ANTIBODY Non-React tulio Non-React tulio 05/10/2019 8:29 PM CDT [email or web address] Comment:Antibodies to HCV no t detected; does not exclude the possibility of exposure to HCV. Blood BLOOD SPECIMEN / Unknown Venipuncture / Unknown 05/10/2019 12:45 PM CDT 05/10/2019 12:45 PM CDT Lana Moore MD SEND OUTS [email or web address] LABORATORY-CENTRAL LABORATORY [address] [place] [address], from Last 3 Months or Most Recently Relevant to Health Maintenance Advance Directives * Full Code (Latest Code Status on File) Date Activated Date Inactivated Comments 11/17/2018 1:10 AM 12/03/2018 1:42 PM * Full Code Date Activated Date Inactivated Comments 04/11/2016 11:54 AM 04/11/2016 6:17 PM * Full Code Date Activated Date Inactivated Comments 04/11/2016 8:05 AM 04/11/2016 11:54 AM Care Teams Manganese Wheeler Relationship Specialty Start Date End Date Leesa Jaeger DO [address] [place] [address] PCP - General Family Practice 12/09/23 Trish Vance MD Oncology - Gynecologic 04/02/16 Mookie Guzman PsyD, LP [address] [place] [address] Psychologist Psychology 02/21/20 Ginna Cooney RN [address] [place] [address] [facility] Care Center Assistant Director 05/14/21 Manohar Sanon MD [address] [place] [address] Neurology 10/09/22 Raghu Martinez MD [address] [facility] [address] [place] [address] Endocrinology 09/03/23 Usama Todd MD 100 [facility] [place] [address] Surgery - Urology 05/30/24
--- OUTSIDE RECORDS SUMMARY | 2024-07-30 14:53 | XMS_ITS | Encounter Summary ---
Author Organization [facility] Address [address], [place] [address] Care Team Providers Care Branch Logistics Supervisor Name Role Phone Moraima Johns DO Primary Care Provider [phone] Encounter Details Date Type Department Care Team (Late st Contact Info) Description 07/24/2017 Correspondence None No Primary/Referring, Phy HME EQUIPMENT BASKET WEAVER TICKET CPAP Social History Tobacco Use Types [...] on filedocumented in this encounter Care Teams Branch Logistics Supervisor Relationship Specialty Start Date End Date Moraima Johns DO [address] [place] [address] PCP - General Family Practice 07/07/18 documented as of this encounter
--- OUTSIDE RECORDS SUMMARY | 2024-07-30 14:53 | XMS_ITS | Encounter Summary ---
Author Organization [facility] Address [address] [address] Care Team Providers Care Substation Technician Name Role Phone Moraima Johns DO Primary Care Provider [phone] Encounter Details Date Type Department Care Team (Late st Contact Info) Description 04/02/2016 Outside Hospital External to External, Provider No address [place], [place] [id number] [place] [address] ONCOLOGY CONSULT Social History Tobacco Use Types [...] on filedocumented in this encounter Care Teams Substation Technician Relationship Specialty Start Date End Date Moraima Johns DO [address] [place] [address] PCP - General Family Practice 07/07/18 documented as of this encounter
--- OUTSIDE RECORDS SUMMARY | 2024-07-30 14:53 | XMS_ITS | Encounter Summary ---
Author Organization [facility] Address [address], [place] [address] Care Team Providers Care Tray Service Worker Name Role Phone Moraima Johns DO Primary Care Provider [phone] Encounter Details Date Type Department Care Team (Late st Contact Info) Description 05/13/2016 Outside Hospital External to External, Provider No address [address] ONCOLOGY PROGRESS NOTE Social History Tobacco [...] on filedocumented in this encounter Care Teams Tray Service Worker Relationship Specialty Start Date End Date Moraima Johns DO [address] [place] [address] PCP - General Family Practice 07/07/18 documented as of this encounter
--- OUTSIDE RECORDS SUMMARY | 2024-07-30 14:53 | XMS_ITS | Encounter Summary ---
Author Organization [facility] Address [address], [place] [address] Care Team Providers Care Director Of Learning Name Role Phone Moraima Johns DO Primary Care Provider [phone] Encounter Details Date Type Department Care Team (Late st Contact Info) Description 02/18/2017 Consent for Procedure/[place] [address] [facility] CONSENT FOR MEDICAL OR SURGICAL TRETMENT Social [...] on filedocumented in this encounter Care Teams Director Of Learning Relationship Specialty Start Date End Date Moraima Johns DO [address] [place] [address] PCP - General Family Practice 07/07/18 documented as of this encounter
--- OUTSIDE RECORDS SUMMARY | 2024-07-30 14:53 | XMS_ITS | Encounter Summary ---
Author Organization [facility] Address [address], [place] [address] Care Team Providers Care Meter Record Clerk Name Role Phone Moraima Johns DO Primary Care Provider [phone] Encounter Details Date Type Department Care Team [...] on filedocumented in this encounter Care Teams Meter Record Clerk Relationship Specialty Start Date End Date Moraima Johns DO [address] [place] [address] PCP - General Family Practice 07/07/18 documented as of this encounter
== END 2024-07-29 14:11 | disposition home or self-care (01) ==
LOC: NFLDREF 07-30 14:51
PROVIDERS: PCP Family Medicine; Referring Provider Family Medicine; Visit Provider Nurse Practitioner Family
DX: N30.90 Cystitis, unspecified without hematuria (principal)
CPT/HCPCS: 87086